=== PATIENT | female | born 1960 | race Caucasian/White ===

== ENCOUNTER 2020-04-30 02:08 | Inpatient (IN) | payer OTHER ==
[2020-04-30] MEDS ORDERED: NALOXONE 0.4 MG/ML 1 ML VIAL IV PRN (02:25)
--- NOTE | 2020-04-30 02:37 | ED ---
Abdominal Pain HPI - General Chief Complaint: Abdominal Pain Stated Complaint: abd pain Time Seen by Provider: 04/30/20 02:11 Source: patient, RN/MD, EMS Mode of arrival: EMS - History of Present Illness Initial Comments: This patient is 59-year-old woman transferred here from [facility] for small bowel obstruction which was found there tonight on computed tomography scan. Patient relates that she had been having abdominal pain across the lower abdomen since the early afternoon or even late morning. She then started having some vomiting. She reported couple of episodes of vomiting without seeing any blood or coffee-ground emesis. She tried taking some home pain medication that did not help and then went to the other hospital tonight. Patient had a comput ed tomography scan there that reportedly showed small bowel obstruction with transition point in the right lower quadrant. Patient had NG tube placement and transferred here. The patient does state she is feeling much better following the medication there. MD Complaint: abdominal pain Location: LLQ, RLQ Radiation: none Severity: moderate Quality: cramping Consistency: now resolved Improves With: nothing Worsens With: nothing Associated Symptoms: nausea, vomiting Treatments Prior to Arrival: other - Related Data Allergies Allergy/AdvReac Type Severity Reaction Status Date / Time gluten AdvReac Nausea & Verified 04/30/20 02:18 Vomiting Review of Systems ROS Statement: Those systems with pertinent positive or pertinent negative responses have been documented in the HPI. ROS Other: All systems not noted in ROS Statement are negative. Constitutional: Denies: fever, chills Respiratory: Denies: cough, dyspnea Cardiovascular: Denies: chest pain, palpitations, edema Gastrointestinal: Reports: abdominal pain, nausea, vomiting. Denies: diarrhea, constipation, hematemesis, melena, hematochezia Genitourinary: Denies: dysuria, hematuria Musculoskeletal: Denies: back pain Skin: Denies: rash Neurological: Denies: headache Past Medical History Additional Past Medical History / Comment(s): only had right kidney, Graves disease, Celiac disease History of Any Multi-Drug Resistant Organisms: None Reported Past Surgical History: Tubal Ligation Additional Past Surgical History / Comment(s): cervical fusion c2-c7,donated kidney Past Psychological History: No Psychological Hx Reported Smoking Status: Former smoker Past Alcohol Use History: Rare Past Drug Use History: None Reported General Exam General appearance: alert, in no apparent distress Head exam: Present: atraumatic, normocephalic Eye exam: Present: normal appearance. Absent: scleral icterus, conjunctival injection ENT exam: Present: normal oropharynx, other (NG tube present) Neck exam: Present: normal inspection Respiratory exam: Present: normal lung sounds bilaterally. Absent: respiratory distress, wheezes, rales, rhonchi, stridor Cardiovascular Exam: Present: regular rate, normal rhythm, normal heart sounds. Absent: systolic murmur, diastolic murmur, rubs, gallop GI/Abdominal exam: Present: soft. Absent: distended, tenderness, guarding, rebound, rigid, mass, pulsatile mass, hernia Extremities exam: Present: normal inspection, normal capillary refill. Absent: pedal edema, calf tenderness Back exam: Present: normal inspection. Absent: CVA tenderness (R), CVA t enderness (L) Neurological exam: Present: alert Skin exam: Present: warm, dry, intact, normal color. Absent: rash Course Vital Signs 04/30/20 02:13 Temperature 97.6 F Pulse Rate 63 Respiratory 18 Rate Blood Pressure 125/63 O2 Sat by Pulse 97 Oximetry Disposition Clinical Impression: Small bowel obstruction Disposition: ADMITTED IP TO THIS HOSP Condition: Fair Is patient prescribed a controlled substance at d/c from ED?: No Referrals: Lazaro Brown MD [Primary Care Provider] - 1-2 days
[2020-04-30] MEDS: SODIUM CHLORIDE 0.9% 1,000 ML IV SCH ×3 (02:40→20:44)
[2020-04-30] MEDS: FAMOTIDINE 20 MG/2 ML VIAL IV SCH ×2 (02:40→15:48)
[2020-04-30] MEDS ORDERED: LIDOCAINE VISCOUS 2% 15 ML CUP MUCOUS MEM STA (02:56)
[2020-04-30] MEDS: ONDANSETRON 4 MG/2 ML VIAL IVP PRN (05:04)
[2020-04-30] MEDS: MORPHINE SULFATE 4 MG/ML SYRINGE IV PRN ×3 (06:22→20:38)
[2020-04-30] MEDS: METOCLOPRAMIDE 5 MG/ML 2 ML VIAL IVP PRN ×2 (08:45→20:38)
[2020-04-30 08:51] LABS: Basophils % (A) 0 %; Eosinophils # (A) 0.1 k/uL (0-0.7); Eosinophils % (A) 1 %; HCT 39.2 % (34.0-46.0); HGB 13.1 gm/dL (11.4-16.0); Lymphocytes # (A) 0.6 k/uL (1.0-4.8); Lymphocytes % (A) 6 %; MCH 31.8 pg (25.0-35.0); MCHC 33.6 g/dL (31.0-37.0); MCV 94.7 fL (80.0-100.0); Monocytes # (A) 0.5 k/uL (0-1.0); Monocytes % (A) 5 %; Neutrophils # (A) 8.5 k/uL (1.3-7.7); Neutrophils % (A) 87 %; Platelet Count 269 k/uL (150-450); RBC 4.13 m/uL (3.80-5.40); RDW 12.8 % (11.5-15.5); WBC 9.7 k/uL (3.8-10.6)
[2020-04-30 09:01] LABS: ALT 13 U/L (4-34); AST 18 U/L (14-36); African American GFR (CKD) 72 (>60 ml/min/1.73 sqM); Albumin 3.7 g/dL (3.5-5.0); Albumin/Globulin Ratio 1.4; Alkaline Phosphatase 83 U/L (38-126); Anion Gap 2 mmol/L; Blood Urea Nitrogen 14 mg/dL (7-17); Carbon Dioxide 29 mmol/L (22-30); Chloride 107 mmol/L (98-107); Globulin 2.6 g/dL; Glucose 125 mg/dL (74-99); Non-African American GFR(CKD) 62 (>60 ml/min/1.73 sqM); Potassium 4.4 mmol/L (3.5-5.1); Sodium 138 mmol/L (137-145); Total Bilirubin 0.4 mg/dL (0.2-1.3); Total Protein 6.3 g/dL (6.3-8.2)
--- NOTE | 2020-04-30 12:51 | P.GSCN ---
History of Present Illness Consult date: 04/30/20 History of present illness: CHIEF COMPLAINT: Abdominal pain HISTORY OF PRESENT ILLNESS: This is a 59-year-old female with a known history of having only one kidney, Graves' disease and celiac disease. History of tubal ligation. Patient's initially presented to [facility] with complaints of abdominal pain. Patient reports that her pain started yesterday afternoon. She reports that her pain had initially been higher up in the abdomen and she was having vomiting. She reports having 3 bowel movements yesterday. 1 she reported normal and then the other tube became looser. She had a computed tomography scan performed at [facility] that did show evidence of a small bowel obstruction with transition point in the right lower quadrant. Patient does report most of her pain is on the right side of her abdomen. She had NG tube placed at [place]. She's had 100 mL output through the evening brownish in color. Patient reports slight improvement in her abdominal pain. She has been having some nausea. She denies any flatus. Denies any fever chills or sweats. She reports no prior history of bowel obstruction. PAST MEDICAL HISTORY: See list. PAST SURGICAL HISTORY: See list. MEDICATIONS: See list. ALLERGIES: See list. SOCIAL HISTORY: No illicit drug use. REVIEW OF SYSTEMS: CONSTITUTIONAL: Denies fever or chills. HEENT: Denies blurred vision, vision changes, or eye pain. Denies hemoptysis CARDIOVASCULAR: Denies chest pain or pressure. RESPIRATORY: No shortness of breath. GASTROINTESTINAL: See HPI for pertinent findings HEMATOLOGIC: Denies bleeding disorders. GENITOURINARY: Denies any blood in urine or increased urinary frequency. SKIN: Denies pruitis. Denies rash. PHYSICAL EXAM: VITAL SIGNS: Reviewed GENERAL: Well-developed in no acute distress. HEENT: No sclera icterus. Extraocular movements grossly intact. Moist buccal mucosa. Head is atraumatic, normocephalic. No nasal drainage. ABDOMEN: Soft. Nondistended. Tenderness with palpation of the right lower abdomen. NEUROLOGIC: Alert and oriented. Cranial nerves II through XII grossly intact. LABORATORY DATA: WBC at [place] was 11 WBC 9.7 Hgb 13.1 IMAGING: ASSESSMENT: 1. Small bowel obstruction with transition point in the right lower quadrant 2. History of nephrectomy for donation and now only has one kidney PLAN: -Continue conservative management -Continue NG tube for decompression -Keep patient nothing by mouth -Continue IV fluids -Continue pain medication as needed -GI prophylaxis Pepcid -DVT prophylaxis subcu heparin Thank you for this consultation Physician Medical Planner note has been reviewed by physician. Signing provider agrees with the documented findings, assessment, and plan of care. Past Medical History Additional Past Medical History / Comment(s): only had right kidney, Graves disease, Celiac disease, IBS History of Any Multi-Drug Resistant Organisms: None Reported Past Surgical History: Tubal Ligation Additional Past Surgical History / Comment(s): cervical fusion c2-c7, donated kidney. R foot reconstruction Past Anesthesia/Blood Transfusion Reactions: No Reported Reaction Past Psychological History: No Psychological Hx Reported Smoking Status: Former smoker Past Alcohol Use History: Rare Past Drug Use History: None Reported Medications and Allergies Home Medications Medication Instructions Recorded Confirmed Type Amitriptyline HCl [Elavil] 25 mg PO HS PRN 04/30/20 04/30/20 History Cetirizine HCl [Zyrtec] 10 mg PO DAILY 04/30/20 04/30/20 History Cider Vinegar [Apple Cider Vinegar] 600 mg PO DAILY 04/30/20 04/30/20 History Fluticasone Nasal [place] [Flonase 1 spray EA NOSTRIL DAILY 04/30/20 04/30/20 History Nasal [place]] Lactobacillus Rhamnosus GG 1 cap PO DAILY 04/30/20 04/30/20 History [Culturelle] Levothyroxine Sodium [Synthroid] 112 mcg PO HS 04/30/20 04/30/20 History Magnesium Oxide [Vitale] 500 mg PO DAILY 04/30/20 04/30/20 History Propranolol [Inderal] 20 mg PO HS 04/30/20 04/30/20 History Riboflavin (Vitamin B2) [Vitamin 200 mg PO DAILY 04/30/20 04/30/20 History B-2] Ubidecarenone [Co Q-10] 200 mg PO DAILY 04/30/20 04/30/20 History busPIRone HCL 15 mg PO BID 04/30/20 04/30/20 History Allergies Allergy/AdvReac Type Severity Reaction Status Date / Time gluten AdvReac Nausea & Verified 04/30/20 07:25 Vomiting Surgical - Exam Vital Signs Temp Pulse Resp BP Pulse Ox 97.6 F 63 18 125/63 97 04/30/20 02:13 04/30/20 02:13 04/30/20 02:13 04/30/20 02:13 04/30/20 02:13 Results - Labs 04/30/20 08:37 04/30/20 08:37 Abnormal Lab Results - Last 24 Hours (Table) 04/30/20 04/30/20 Range/Units 08:37 08:37 Neutrophils # 8.5 H (1.3-7.7) k/uL Lymphocytes # 0.6 L (1.0-4.8) k/uL Glucose 125 H (74-99) mg/dL Diabetes panel 04/30/20 Range/Units 08:37 Sodium 138 (137-145) mmol/L Potassium 4.4 (3.5-5.1) mmol/L Chloride 107 (98-107) mmol/L Carbon Dioxide 29 (22-30) mmol/L BUN 14 (7-17) mg/dL Creatinine 0.98 (0.52-1.04) mg/dL Glucose 125 H (74-99) mg/dL Calcium 9.0 (8.4-10.2) mg/dL AST 18 (14-36) U/L ALT 13 (4-34) U/L Alkaline Phosphatase 83 (38-126) U/L Total Protein 6.3 (6.3-8.2) g/dL Albumin 3.7 (3.5-5.0) g/dL Calcium panel 04/30/20 Range/Units 08:37 Calcium 9.0 (8.4-10.2) mg/dL Albumin 3.7 (3.5-5.0) g/dL Pituitary panel 04/30/20 Range/Units 08:37 Sodium 138 (137-145) mmol/L Potassium 4.4 (3.5-5.1) mmol/L Chloride 107 (98-107) mmol/L Carbon Dioxide 29 (22-30) mmol/L BUN 14 (7-17) mg/dL Creatinine 0.98 (0.52-1.04) mg/dL Glucose 125 H (74-99) mg/dL Calcium 9.0 (8.4-10.2) mg/dL Adrenal panel 04/30/20 Range/Units 08:37 Sodium 138 (137-145) mmol/L Potassium 4.4 (3.5-5.1) mmol/L Chloride 107 (98-107) mmol/L Carbon Dioxide 29 (22-30) mmol/L BUN 14 (7-17) mg/dL Creatinine 0.98 (0.52-1.04) mg/dL Glucose 125 H (74-99) mg/dL Calcium 9.0 (8.4-10.2) mg/dL Total Bilirubin 0.4 (0.2-1.3) mg/dL AST 18 (14-36) U/L ALT 13 (4-34) U/L Alkaline Phosphatase 83 (38-126) U/L Total Protein 6.3 (6.3-8.2) g/dL Albumin 3.7 (3.5-5.0) g/dL
[2020-04-30] MEDS: HEPARIN SODIUM,PORCINE 5,000 UNIT/ML 1 ML VIAL SQ SCH (20:47)
--- NOTE | 2020-04-30 22:47 | P.HPIM ---
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 She complains of early satiety and nausea, denies vomiting and has been having bowel movements. Her pain has been mostly in the R side and worse with eating. She denies fever or chills. She had a CT scan done which did show evidence of a bowel obstruction with transition point in the RLQ. She had an NG tube placed with approx 100 ml out, she feels her pain is slightly improved from yesterday. Labs are reviewed and overall unremarkable with WBC 9.5k. Review of Systems All systems: negative Constitutional: Reports anorexia, Reports weakness, Denies chills, Denies fever Eyes: denies blurred vision, denies pain Ears, nose, mouth and throat: Denies headache, Denies sore throat Cardiovascular: Denies chest pain, Denies shortness of breath Respiratory: Denies cough Gastrointestinal: Reports abdominal pain, Reports bloating, Reports early satiety, Reports loss of appetite, Reports nausea, Denies diarrhea, Denies vomiting Genitourinary: Denies dysuria, Denies hematuria Musculoskeletal: Denies myalgias Integumentary: Denies pruritus, Denies rash Neurological: Denies numbness, Denies weakness Psychiatric: Denies anxiety, Denies depression Endocrine: Denies fatigue, Denies weight change Past Medical History Additional Past Medical History / Comment(s): only had right kidney, Graves disease, Celiac disease, IBS History of Any Multi-Drug Resistant Organisms: None Reported Past Surgical History: Tubal Ligation Additional Past Surgical History / Comment(s): cervical fusion c2-c7, donated kidney. R foot reconstruction Past Anesthesia/Blood Transfusion Reactions: No Reported Reaction Past Psychological History: No Psychological Hx Reported Smoking Status: Former smoker Past Alcohol Use History: Rare Past Drug Use History: None Reported Medications and Allergies Home Medications Medication Instructions Recorded Confirmed Type Amitriptyline HCl [Elavil] 25 mg PO HS PRN 04/30/20 04/30/20 History Cetirizine HCl [Zyrtec] 10 mg PO DAILY 04/30/20 04/30/20 History Cider Vinegar [Apple Cider Vinegar] 600 mg PO DAILY 04/30/20 04/30/20 History Fluticasone Nasal [place] [Flonase 1 spray EA NOSTRIL DAILY 04/30/20 04/30/20 History Nasal [place]] Lactobacillus Rhamnosus GG 1 cap PO DAILY 04/30/20 04/30/20 History [Culturelle] Levothyroxine Sodium [Synthroid] 112 mcg PO HS 04/30/20 04/30/20 History Magnesium Oxide [Vitale] 500 mg PO DAILY 04/30/20 04/30/20 History Propranolol [Inderal] 20 mg PO HS 04/30/20 04/30/20 History Riboflavin (Vitamin B2) [Vitamin 200 mg PO DAILY 04/30/20 04/30/20 History B-2] Ubidecarenone [Co Q-10] 200 mg PO DAILY 04/30/20 04/30/20 History busPIRone HCL 15 mg PO BID 04/30/20 04/30/20 History Allergies Allergy/AdvReac Type Severity Reaction Status Date / Time gluten AdvReac Nausea & Verified 04/30/20 07:25 Vomiting Physical Exam Vitals: Vital Signs Temp Pulse Pulse Resp BP BP BP 04/30/20 19:02 97.4 F L 77 16 134/76 04/30/20 14:00 97.5 F L 73 16 124/76 04/30/20 07:25 97.6 F 65 16 107/67 04/30/20 02:57 98.2 F 60 16 123/71 04/30/20 02:13 97.6 F 63 18 125/63 Pulse Ox 04/30/20 19:02 96 04/30/20 14:00 93 L 04/30/20 07:25 95 04/30/20 02:57 97 04/30/20 02:13 97 Intake and Output 04/30/20 04/30/20 04/30/20 06:59 14:59 22:59 Other: Voiding Method Toilet Toilet # Voids 1 1 # Emeses 1 Weight 90.718 kg General: well nourished, well developed, NAD. Vitals reviewed Eyes: PERRL, EOMI, conjunctiva normal HENT: normocephalic, mucus membranes moist Neck: supple, no JVD Lungs: normal respiratory effort, no wheezes or rales CV: Regular rate and rhythm, no murmur. Peripheral pulses 2+ Abdomen: soft, generalized abdominal pain worse on R Lymph: no cervical or axillary LAD Skin: warm and dry. Neuro: A&Ox3, normal mood and affect Results CBC & Chem 7: 04/30/20 08:37 04/30/20 08:37 Labs: Abnormal Lab Results - Last 24 Hours (Table) 04/30/20 04/30/20 Range/Units 08:37 08:37 Neutrophils # 8.5 H (1.3-7.7) k/uL Lymphocytes # 0.6 L (1.0-4.8) k/uL Glucose 125 H (74-99) mg/dL Thrombosis Risk Factor Assmnt - Choose All That Apply Any of the Below Risk Factors Present?: Yes Each Factor Represents 1 point: Obesity (BMI >25) Other Risk Factors: Yes Each Risk Factor Represents 2 Points: Age 61-74 years Thrombosis Risk Factor Assessment Total Risk Factor Score: 3 Thrombosis Risk Factor Assessment Level: Moderate Risk Assessment and Plan (1) History of tubal ligation Current Visit: Yes Status: Acute Code(s): Z98.51 - TUBAL LIGATION STATUS SNOMED Code(s): 323460808 (2) Solitary kidney, acquired Current Visit: Yes Status: Acute Code(s): Z90.5 - ACQUIRED ABSENCE OF KIDNEY SNOMED Code(s): 414253373 (3) Migraine Current Visit: Yes Status: Acute Code(s): G43.909 - MIGRAINE, UNSP, NOT INTRACTABLE, WITHOUT STATUS MIGRAINOSUS SNOMED Code(s): 73427346 (4) Small bowel obstruction Current Visit: Yes Status: Acute Code(s): K56.609 - UNSP INTESTNL OBST, UNSP TO PARTIAL VERSUS COMPLETE OBST SNOMED Code(s): 138075021 Plan: 1. SBO. NPO and NG tube to suction. Surgery consult. IV fluids at 120 ml/hr. Zofran and reglan prn for nausea and morphine for pain DVT prophylaxis heparin
[2020-05-01] MEDS: MORPHINE SULFATE 4 MG/ML SYRINGE IV PRN ×2 (00:36→08:06)
[2020-05-01] MEDS: SODIUM CHLORIDE 0.9% 1,000 ML IV SCH ×3 (00:53→20:57)
[2020-05-01] MEDS: FAMOTIDINE 20 MG/2 ML VIAL IV SCH ×2 (01:39→14:34)
[2020-05-01] MEDS: METOCLOPRAMIDE 5 MG/ML 2 ML VIAL IVP PRN ×2 (07:55→16:58)
[2020-05-01] MEDS: HEPARIN SODIUM,PORCINE 5,000 UNIT/ML 1 ML VIAL SQ SCH ×2 (07:56→20:57)
[2020-05-01 09:03] LABS: African American GFR (CKD) 77 (>60 ml/min/1.73 sqM); Anion Gap 3 mmol/L; Blood Urea Nitrogen 13 mg/dL (7-17); Calcium 8.2 mg/dL (8.4-10.2); Carbon Dioxide 26 mmol/L (22-30); Chloride 108 mmol/L (98-107); Glucose 120 mg/dL (74-99); Non-African American GFR(CKD) 67 (>60 ml/min/1.73 sqM); Sodium 137 mmol/L (137-145)
[2020-05-01 09:19] LABS: Basophils % (A) 1 %; Eosinophils % (A) 1 %; HCT 38.7 % (34.0-46.0); HGB 13.1 gm/dL (11.4-16.0); Lymphocytes # (A) 0.6 k/uL (1.0-4.8); Lymphocytes % (A) 12 %; MCH 32.1 pg (25.0-35.0); MCHC 33.9 g/dL (31.0-37.0); MCV 94.9 fL (80.0-100.0); Mean Platelet Volume 7.4; Monocytes # (A) 0.5 k/uL (0-1.0); Monocytes % (A) 11 %; Neutrophils # (A) 3.6 k/uL (1.3-7.7); Neutrophils % (A) 75 %; Platelet Count 261 k/uL (150-450); RBC 4.08 m/uL (3.80-5.40); RDW 12.8 % (11.5-15.5); WBC 4.8 k/uL (3.8-10.6)
--- NOTE | 2020-05-01 10:39 | P.PN ---
Subjective Progress Note Date: 05/01/20 CHIEF COMPLAINT: Small bowel obstruction HISTORY OF PRESENT ILLNESS: Patient is being followed for small bowel obstruction. She is complaining of abdominal pain mostly in the middle of her abdomen. She rates her pain 8 out of 10. She is requiring the IV morphine. When she receives the morphine pain goes down to about a 2 out of 10. She's been having dry heaves this morning. Denies any bowel movements or passing gas. She had 350 mL brownish output through her NG tube last night. WBC 4.8 PHYSICAL EXAM: VITAL SIGNS: Reviewed. GENERAL: Well-developed in no acute distress. HEENT: No sclera icterus. Extraocular movements grossly intact. Moist buccal mucosa. Head is atraumatic, normocephalic. ABDOMEN: Soft. Nondistended. Tenderness with palpation of the mid abdomen NEUROLOGIC: Alert and oriented. Cranial nerves II through XII grossly intact. ASSESSMENT: 1. Small bowel obstruction with transition point in the right lower quadrant 2. History of nephrectomy for donation and now only has one kidney PLAN: -We'll check a computed tomography scan of the abdomen and pelvis with oral contrast only for follow-up on small bowel obstruction and abdominal pain -Continue NG tube for decompression -Keep patient nothing by mouth -Continue IV fluids -Continue pain medication as needed -Continue antinausea medications -GI prophylaxis Pepcid -DVT prophylaxis subcu heparin Physician Steel Fabricating Supervisor note has been reviewed by physician. Signing provider agrees with the documented findings, assessment, and plan of care. Objective - Vital Signs Vital signs: Vital Signs Temp 98.1 F 05/01/20 08:00 Pulse 85 05/01/20 08:00 Resp 16 05/01/20 08:00 BP 118/73 05/01/20 08:00 Pulse Ox 92 L 05/01/20 08:00 Intake & Output 04/30/20 05/01/20 05/01/20 18:59 06:59 18:59 Other: Voiding Method Toilet # Voids 1 1 # Emeses 1 - Labs CBC & Chem 7: 05/01/20 08:24 05/01/20 08:24 Labs: Abnormal Lab Results - Last 24 Hours (Table) 05/01/20 05/01/20 Range/Units 08:24 08:24 Lymphocytes # 0.6 L (1.0-4.8) k/uL Chloride 108 H (98-107) mmol/L Glucose 120 H (74-99) mg/dL Calcium 8.2 L (8.4-10.2) mg/dL
[2020-05-01] MEDS: IOPAMIDOL CONTRAST (ORAL USE) VIAL PO PRN ×2 (10:44→12:00)
[2020-05-01] MEDS: ONDANSETRON 4 MG/2 ML VIAL IVP PRN (11:15)
--- NOTE | 2020-05-01 13:13 | CT ---
EXAMINATION TYPE: CT abdomen pelvis wo con DATE OF EXAM: 05/01/2020 HISTORY: Generalized pain with vomiting and diarrhea CT DLP: 745.9 mGycm. Automated Exposure Control for Dose Reduction was Utilized. TECHNIQUE: CT scan of the abdomen and pelvis is performed with oral but without IV contrast. COMPARISON: Outside CT from [address] report not available. FINDINGS: Within the limitations of a non-contrast study, the following observations are made. LUNG BASES: Tiny bilateral pleural effusions with dependent atelectasis and additional [id number] te scattered atelectasis and/or limited consolidation new from recent outside study. LIVER/GB: Gallbladder has distended margins with dependent density favoring sludge and/or small stone s. No surrounding inflammatory change. PANCREAS: No significant abnormality is seen. SPLEEN: No significant abnormality is seen. ADRENALS: No significant abnormality is seen. KIDNEYS: Left kidney not seen and is congenitally or surgically absent. BOWEL: Oral contrast reaches level of the proximal transverse colon. Stomach is poorly distended and thus suboptimally evaluated. Few small bowel loops in the left midabdomen are prominent, some slightly abnormally dilated, largest single lymph node measures up to 4.1 cm centimeter axial image 38 in the upper to mid left abdomen. Interval improvement from outside CT Few scattered contrast there are levels. Terminal ileum appears within normal limits. No suspicious colonic dilatation. Interval resolution of prior small bowel fece s sign in the right abdomen. GENITAL ORGANS: Anteverted uterus. Small to moderate amount of free fluid in the left pelvis axial im age 75 LYMPH NODES: No greater than 1cm abdominal or pelvic lymph nodes are appreciated. OSSEOUS STRUCTURES: No significant abnormality is seen. OTHER: Mild to moderate calcified plaque of the aorta extends into branch vessels. Some ectasia to th e distal abdominal aorta without greater than 3.0 cm aneurysm. IMPRESSION: Improving prominent and abnormally dilated fluid-filled small bowel loops in the left abd omen consistent with resolving partial mid to distal small bowel obstruction. Oral contrast on this s tudy has passed into colonic levels. Correlate clinically.
--- NOTE | 2020-05-01 16:03 | P.PN ---
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 She complains of early satiety and nausea, denies vomiting and has been having bowel movements. Her pain has been mostly in the R side and worse with eating. She denies fever or chills. She had a CT scan done which did show evidence of a bowel obstruction with transition point in the RLQ. She had an NG tube placed with approx 100 ml out, she feels her pain is slightly improved from yesterday. Labs are reviewed and overall unremarkable with WBC 9.5k. 05/01/2020 currently on Reglan, Zofran with NG tube. Reports dry heaves, nauseated. No flatus, no bowel movement. Maintained on IV fluids. Reports diffuse abdominal pain unchanged,remains worse on right lower quadrant. Denies chest pain, palpitations or shortness of breath. T-max 99.4, normal WBC. Objective - Vital Signs Vital signs: Vital Signs Temp 99.4 F 05/01/20 14:00 Pulse 119 H 05/01/20 14:00 Resp 16 05/01/20 14:00 BP 118/73 05/01/20 08:00 Pulse Ox 91 L 05/01/20 14:00 Intake & Output 04/30/20 05/01/20 05/01/20 18:59 06:59 18:59 Other: Voiding Method Toilet # Voids 1 1 # Emeses 1 - Exam General: Sitting up in bed, NAD. Vitals reviewed Eyes: PERRL, EOMI, conjunctiva normal HENT: normocephalic, mucus membranes dry, NG tube present, brownish drainage Neck: supple, no JVD Lungs: normal respiratory effort, no wheezes or rales CV: Regular rate and rhythm, no murmur. Peripheral pulses 2+ Abdomen: soft, generalized abdominal pain worse on R Skin: warm and dry. Neuro: A&Ox3, normal mood and affect - Labs CBC & Chem 7: 05/01/20 08:24 05/01/20 08:24 Labs: Abnormal Lab Results - Last 24 Hours (Table) 05/01/20 05/01/20 Range/Units 08:24 08:24 Lymphocytes # 0.6 L (1.0-4.8) k/uL Chloride 108 H (98-107) mmol/L Glucose 120 H (74-99) mg/dL Calcium 8.2 L (8.4-10.2) mg/dL Assessment and Plan Assessment: SBO Current Visit: Yes Status: Acute Code(s): K56.609 - UNSP INTESTNL OBST, UNSP TO PARTIAL VERSUS COMPLETE OBST SNOMED Code(s): 820524185 Solitary kidney, acquired Current Visit: Yes Status: Acute Code(s): Z90.5 - ACQUIRED ABSENCE OF KIDNEY SNOMED Code(s): 458774927 History of IBS Former nicotine dependence Anxiety Plan: Continue on current medication regime ,monitoring and symptomatic treatment. Continue anti-emetics. Maintain IV fluid hydration with bowel rest, decompression /NG tube. Pain management. CT of abdomen and pelvis pending. Aggressive pulmonary toileting with incentive spirometer ordered. GI prophylaxis with Pepcid, DVT prophylaxis with heparin subcu. The impression and plan of care has been dictated as directed. : I performed a history and examination of this patient, discussed the same with the dictator. I agree with the dictator's note ,documented as a scribe. Any additional findings or plans will be noted.
[2020-05-01] MEDS ORDERED: ACETAMINOPHEN IV (For NPO) 1,000 MG in EMPTY BAG 1 BAG IVPB PRN (20:01)
[2020-05-01] MEDS: PIPERACILLIN-TAZOBACTAM 3.375 GM in SODIUM CHLORIDE 0.9% 100 ML IVPB SCH (20:57)
[2020-05-02] MEDS: FAMOTIDINE 20 MG/2 ML VIAL IV SCH ×2 (03:34→14:01)
[2020-05-02] MEDS: SODIUM CHLORIDE 0.9% 1,000 ML IV SCH ×3 (03:38→22:43)
[2020-05-02] MEDS: PIPERACILLIN-TAZOBACTAM 3.375 GM in SODIUM CHLORIDE 0.9% 100 ML IVPB SCH (08:33)
[2020-05-02] MEDS: HEPARIN SODIUM,PORCINE 5,000 UNIT/ML 1 ML VIAL SQ SCH ×2 (08:33→20:40)
[2020-05-02] MEDS: ONDANSETRON 4 MG/2 ML VIAL IVP PRN ×2 (08:33→20:39)
[2020-05-02 08:48] LABS: ALT 9 U/L (4-34); AST 17 U/L (14-36); African American GFR (CKD) 73 (>60 ml/min/1.73 sqM); Albumin 2.9 g/dL (3.5-5.0); Albumin/Globulin Ratio 1.2; Alkaline Phosphatase 65 U/L (38-126); Anion Gap 4 mmol/L; Blood Urea Nitrogen 11 mg/dL (7-17); Calcium 7.7 mg/dL (8.4-10.2); Carbon Dioxide 26 mmol/L (22-30); Chloride 107 mmol/L (98-107); Globulin 2.5 g/dL; Glucose 106 mg/dL (74-99); Non-African American GFR(CKD) 64 (>60 ml/min/1.73 sqM); Potassium 3.6 mmol/L (3.5-5.1); Sodium 137 mmol/L (137-145); Total Bilirubin 0.7 mg/dL (0.2-1.3); Total Protein 5.4 g/dL (6.3-8.2)
[2020-05-02 09:06] LABS: HGB 11.8 gm/dL (11.4-16.0); MCH 32.4 pg (25.0-35.0); MCHC 33.8 g/dL (31.0-37.0); MCV 95.8 fL (80.0-100.0); Mean Platelet Volume 8.5; Platelet Count 233 k/uL (150-450); RBC 3.65 m/uL (3.80-5.40); RDW 12.9 % (11.5-15.5); WBC 4.7 k/uL (3.8-10.6)
[2020-05-02 09:40] LABS: Band Neutrophils % 4 %; Eosinophils # (M) 0.09 k/uL (0-0.7); Lymphocytes # (M) 1.03 k/uL (1.0-4.8); Monocytes # (M) 0.47 k/uL (0-1.0); Neutrophils % (M) 62 %; Nucleated Red Blood Cells 0 /100 WBC (0-0); Total Cells Counted 100
--- NOTE | 2020-05-02 12:31 | P.PN ---
Subjective Progress Note Date: 05/02/20 CHIEF COMPLAINT: Small bowel obstruction HISTORY OF PRESENT ILLNESS: Patient is being followed for small bowel obstruction. Patient had 2 bowel movements this morning and is passing gas. Her abdominal pain has decreased. NG tube will be removed today. Computed tomography scan of the abdomen and pelvis shows improving small bowel obstruction. She did have a temp of 100.1 last night and had been tachycardic with a heart rate of 114. I this morning she is afebrile at 98.5 and heart rate 96. Ice she's been placed on IV Zosyn and incentive spirometer ordered by medicine service. PHYSICAL EXAM: VITAL SIGNS: Reviewed. GENERAL: Well-developed in no acute distress. HEENT: No sclera icterus. Extraocular movements grossly intact. Moist buccal mucosa. Head is atraumatic, normocephalic. ABDOMEN: Soft. Nondistended. Minimal tenderness with palpation of middle of abdomen NEUROLOGIC: Alert and oriented. Cranial nerves II through XII grossly intact. ASSESSMENT: 1. Small bowel obstruction with transition point in the right lower quadrant. Showing improvement 2. 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 Signing provider agrees with the documented findings, assessment, and plan of care. Objective - Vital Signs Vital signs: Vital Signs Temp 98.5 F 05/02/20 07:43 Pulse 96 05/02/20 07:43 Resp 18 05/02/20 08:00 BP 121/72 05/02/20 07:43 Pulse Ox 90 L 05/02/20 07:43 Intake & Output 05/01/20 05/02/20 05/02/20 18:59 06:59 18:59 Other: Voiding Method Toilet Bedside Commode # Voids 1 1 1 # Bowel Movements 1 - Labs CBC & Chem 7: 05/02/20 01:53 05/02/20 01:53 Labs: Abnormal Lab Results - Last 24 Hours (Table) 05/02/20 05/02/20 Range/Units 01:53 01:53 RBC 3.65 L (3.80-5.40) m/uL Glucose 106 H (74-99) mg/dL Calcium 7.7 L (8.4-10.2) mg/dL Total Protein 5.4 L (6.3-8.2) g/dL Albumin 2.9 L (3.5-5.0) g/dL
[2020-05-02] MEDS ORDERED: BENZOCAINE/MENTHOL LOZENG 1 EACH LOZENGE MUCOUS MEM PRN (14:30)
--- NOTE | 2020-05-02 15:03 | CDI ---
Documentation Clarification Form Date: 05/02/2020 02:34:43 PM From: Sunshine Ortiz RN, CCDS Admit Date: 04/30/2020 02:25:00 AM Patient Name: Erika Busch Visit Number: [id number] Discharge Date: ATTENTION: The Clinical Documentation Specialists (CDI) and [facility] Coding Staff appreciate your assistance in clarifying documentation. Please respond to the clarification below the line at the bottom and electronically sign. The CDI & [facility] Coding staff will review the response and follow-up if needed. Please note: Queries are made part of the Legal Health Record. If you have any questions, please contact the author of this message via ITS. Dr. Lazaro Brown The patient presented with abdominal pain ruled in for small bowel obstruction. Please render your opinion on the type of small bowel obstruction. History/Risk Factors: Donated kidney, Graves disease, Celiac disease, Former smoker Clinical Indicators: 59-year-old woman transferred from [facility] for small bowel obstruction which was found on CT scan. She had been having abdominal pain across the lower abdomen with nausea and vomiting. 04/30 Vital signs: 125/63 63 18 97.6 05/01 CT Abdomen: Improving prominent and abnormally dilated fluid-filled small bowel loops in the left abdomen consistent with resolving partial mid to distal small bowel obstruction. Treatment: NPO NGT to LIS Morphin 4 mg IV Q 4 hrs prn .9 NS @ 120 mls/hr Zofran 4 mg IVP q 8 hrs prn In your professional opinion, can you please further clarify small bowel obstruction? Partial small bowel obstruction Complete small bowel obstruction Incomplete small bowel obstruction Other, please specify Unable to determine (Last Revision: August 2017) Partial small bowel obstruction MTDD
[2020-05-02] MEDS: METOCLOPRAMIDE 5 MG/ML 2 ML VIAL IVP PRN (17:15)
--- NOTE | 2020-05-02 18:19 | P.PN ---
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 She complains of early satiety and nausea, denies vomiting and has been having bowel movements. Her pain has been mostly in the R side and worse with eating. She denies fever or chills. She had a CT scan done which did show evidence of a bowel obstruction with transition point in the RLQ. She had an NG tube placed with approx 100 ml out, she feels her pain is slightly improved from yesterday. Labs are reviewed and overall unremarkable with WBC 9.5k. 05/01/2020 currently on Reglan, Zofran with NG tube. Reports dry heaves, nauseated. No flatus, no bowel movement. Maintained on IV fluids. Reports diffuse abdominal pain unchanged,remains worse on right lower quadrant. Denies chest pain, palpitations or shortness of breath. T-max 99.4, normal WBC. 1217 20 CT reporting partial small bowel obstruction. Nausea improved, complains of gagging from NG tube. Staff attempting to obtain Cetacaine spray. Spiked a fever during the night, T-max 100.1, WBC within normal limits, mild tachycardia received Zosyn . Blood cultures in progress. Currently afebrile, tachycardia subsided. Passing flatus,bowel movements x 2 this am, less abdominal pain. Objective - Vital Signs Vital signs: Vital Signs Temp 97.5 F L 05/02/20 14:00 Pulse 89 05/02/20 14:00 Resp 18 05/02/20 14:00 BP 123/76 05/02/20 14:00 Pulse Ox 91 L 05/02/20 14:00 Intake & Output 05/01/20 05/02/20 05/02/20 18:59 06:59 18:59 Intake Total 200 Balance 200 Intake: Oral 200 Other: Voiding Method Toilet Bedside Commode # Voids 1 1 1 # Bowel Movements 1 - Exam General: Sitting up in bed, NAD. Vitals reviewed Eyes: PERRL, EOMI, conjunctiva normal HENT: normocephalic, mucus membranes dry, NG tube present, less drainage Neck: supple, no JVD Lungs: normal respiratory effort, no wheezes or rales CV: Regular rate and rhythm, no murmur. Peripheral pulses 2+ Abdomen: soft, generalized abdominal pain worse on R, positive bowel sounds Skin: warm and dry. Neuro: A&Ox3, normal mood and affect - Labs CBC & Chem 7: 05/02/20 01:53 05/02/20 01:53 Labs: Abnormal Lab Results - Last 24 Hours (Table) 05/02/20 05/02/20 Range/Units 01:53 01:53 RBC 3.65 L (3.80-5.40) m/uL Glucose 106 H (74-99) mg/dL Calcium 7.7 L (8.4-10.2) mg/dL Total Protein 5.4 L (6.3-8.2) g/dL Albumin 2.9 L (3.5-5.0) g/dL Assessment and Plan Assessment: SBO Current Visit: Yes Status: Acute Code(s): K56.609 - UNSP INTESTNL OBST, UNSP TO PARTIAL VERSUS COMPLETE OBST SNOMED Code(s): 016486795 Solitary kidney, acquired Current Visit: Yes Status: Acute Code(s): Z90.5 - ACQUIRED ABSENCE OF KIDNEY SNOMED Code(s): 182307048 History of IBS Former nicotine dependence Anxiety Plan: Continue on current medication regime ,monitoring and symptomatic treatment. Continue anti-emetics. Maintain IV fluid hydration. Pain management. NG tube being discontinued/diet advancement as per surgery. Continue aggressive pulmonary toileting with incentive spirometer ordered. Discharge planning in progress possibly tomorrow. The impression and plan of care has been dictated as directed. : I performed a history and examination of this patient, discussed the same with the dictator. I agree with the dictator's note ,documented as a scribe. Any additional findings or plans will be noted.
[2020-05-02] MEDS: MORPHINE SULFATE 4 MG/ML SYRINGE IV PRN (19:39)
[2020-05-03] MEDS: SODIUM CHLORIDE 0.9% 1,000 ML IV SCH (00:37)
[2020-05-03 02:46] VITALS: BP 136/80; PULSE 78; RESP 14; TEMP 98.3
[2020-05-03] MEDS: FAMOTIDINE 20 MG/2 ML VIAL IV SCH (02:51)
[2020-05-03] MEDS: HEPARIN SODIUM,PORCINE 5,000 UNIT/ML 1 ML VIAL SQ SCH (08:30)
--- NOTE | 2020-05-03 10:28 | P.DS ---
Providers Date of admission: 04/30/20 02:25 Expected date of discharge: 05/03/20 Attending physician: Lazaro Brown MD Consults: 04/30/20 02:28 Consult Physician Routine Consulting Provider: Kvng Alford Consult Reason/Comments: small bowel obstruction Do you want consulting provider notified?: Yes Primary care physician: Lazaro Brown MD Hospital Course: Final Diagnoses: SBO Current Visit: Yes Status: Acute Code(s): K56.609 - UNSP INTESTNL OBST, UNSP TO PARTIAL VERSUS COMPLETE OBST SNOMED Code(s): 287887476 Solitary kidney, acquired Current Visit: Yes Status: Acute Code(s): Z90.5 - ACQUIRED ABSENCE OF KIDNEY SNOMED Code(s): 853769831 History of IBS Former nicotine dependence Anxiety Hospital course:Erika Busch is a 59 yo F with PMH of migraine, 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 She complains of early satiety and nausea, denies vomiting and has been having bowel movements. Her pain has been mostly in the R side and worse with eating. She denies fever or chills. She had a CT scan done which did show evidence of a bowel obstruction with transition point in the RLQ. She had an NG tube placed with approx 100 ml out, she feels her pain is slightly improved from yesterday. Labs are reviewed and overall unremarkable with WBC 9.5k. 05/01/2020 currently on Reglan, Zofran with NG tube. Reports dry heaves, nauseated. No flatus, no bowel movement. Maintained on IV fluids. Reports diffuse abdominal pain unchanged,remains worse on right lower quadrant. Denies chest pain, palpitations or shortness of breath. T-max 99.4, normal WBC. 1217 [address] CT reporting partial small bowel obstruction. Nausea improved, complains of gagging from NG tube. Staff attempting to obtain Cetacaine spray. Spiked a fever during the night, T-max 100.1, WBC within normal limits, mild tachycardia received Zosyn . Blood cultures in progress. Currently afebrile, tachycardia subsided. Passing flatus,bowel movements x 2 this am, less abdominal pain. NG tube discontinued, tolerating diet advancement. Passing flatus. Abdominal pain significantly improved, reports some cramping. Patient will be discharged home later today in a stable condition with guarded prognosis, if patient tolerates further diet advancement to soft and pending final DC recommendations and clearance from surgery. The impression and plan of care has been dictated as directed. : I performed a history and examination of this patient, discussed the same with the dictator. I agree with the dictator's note ,documented as a scribe. Any additional findings or plans will be noted. Patient Condition at Discharge: Stable Plan - Discharge Summary New Discharge Prescriptions: New Psyllium Husk (with Sugar) [Metamucil Powder] 6 gm PO DAILY #575 gm Sennosides-Docusate Sodium [Senokot-S] 2 tab PO HS #60 tablet Simethicone [Gas-X] 62.5 mg PO TID #30 strip Continue Fluticasone Nasal Jamison [Flonase Nasal Jamison] 1 spray EA NOSTRIL DAILY Cider Vinegar [Apple Cider Vinegar] 600 mg PO DAILY Riboflavin (Vitamin B2) [Vitamin B-2] 200 mg PO DAILY Magnesium Oxide [Vitale] 500 mg PO DAILY Lactobacillus Rhamnosus GG [Culturelle] 1 cap PO DAILY Cetirizine HCl [Zyrtec] 10 mg PO DAILY busPIRone HCL 15 mg PO HS Propranolol [Inderal] 20 mg PO HS Levothyroxine Sodium [Synthroid] 112 mcg PO HS Amitriptyline HCl [Elavil] 25 mg PO HS PRN PRN Reason: Migraine Headache Ubidecarenone [Co Q-10] 200 mg PO DAILY Discharge Medication List Amitriptyline HCl [Elavil] 25 mg PO HS PRN 04/30/20 [History] Cetirizine HCl [Zyrtec] 10 mg PO DAILY 04/30/20 [History] Cider Vinegar [Apple Cider Vinegar] 600 mg PO DAILY 04/30/20 [History] Fluticasone Nasal Jamison [Flonase Nasal Jamison] 1 spray EA NOSTRIL DAILY 04/30/20 [History] Lactobacillus Rhamnosus GG [Culturelle] 1 cap PO DAILY 04/30/20 [History] Levothyroxine Sodium [Synthroid] 112 mcg PO HS 04/30/20 [History] Magnesium Oxide [Vitale] 500 mg PO DAILY 04/30/20 [History] Propranolol [Inderal] 20 mg PO HS 04/30/20 [History] Riboflavin (Vitamin B2) [Vitamin B-2] 200 mg PO DAILY 04/30/20 [History] Ubidecarenone [Co Q-10] 200 mg PO DAILY 04/30/20 [History] busPIRone HCL 15 mg PO HS 04/30/20 [History] Psyllium Husk (with Sugar) [Metamucil Powder] 6 gm PO DAILY #575 gm 05/03/20 [Rx] Sennosides-Docusate Sodium [Senokot-S] 2 tab PO HS #60 tablet 05/03/20 [Rx] Simethicone [Gas-X] 62.5 mg PO TID #30 strip 05/03/20 [Rx] Follow up Appointment(s)/Referral(s): Lazaro Brown MD [Primary Care Provider] - 1-2 days Activity/Diet/Wound Care/Special Instructions: Diet: High-fiber, increased water intake as previously discussed Miralax prn, OTC
[2020-05-03] MEDS ORDERED: SIMETHICONE 80 MG CHEWABLE PO SCH (13:00)
--- NOTE | 2020-05-03 13:22 | P.PN ---
Subjective Progress Note Date: 05/03/20 CHIEF COMPLAINT: Small bowel obstruction HISTORY OF PRESENT ILLNESS: Patient is being followed for small bowel obstruction. Patient is having bowel movements and passing gas. She's had improvement in her abdominal pain. She is tolerating full liquid diet. She'll be advanced to a low fiber diet. She denies any nausea or vomiting. Afebrile. WBC 4.7 PHYSICAL EXAM: VITAL SIGNS: Reviewed. GENERAL: Well-developed in no acute distress. HEENT: No sclera icterus. Extraocular movements grossly intact. Moist buccal mucosa. Head is atraumatic, normocephalic. ABDOMEN: Soft. Nondistended. Nontender NEUROLOGIC: Alert and oriented. Cranial nerves II through XII grossly intact. ASSESSMENT: 1. Small bowel obstruction with transition point in the right lower quadrant. Showing improvement 2. 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 bolton in 10 days Physician Magnet Placer note has been reviewed by physician. Signing provider agrees with the documented findings, assessment, and plan of care. Objective - Vital Signs Vital signs: Vital Signs Temp 98.3 F 05/03/20 01:40 Pulse 78 05/03/20 01:40 Resp 14 05/03/20 01:40 BP 136/80 05/03/20 01:40 Pulse Ox 90 L 05/03/20 01:40 Intake & Output 05/02/20 05/03/20 05/03/20 18:59 06:59 18:59 Intake Total 640 600 Balance 640 600 Intake: Intake, IV Titration 600 Amount Sodium Chloride 0.9% 1, 600 000 ml @ 120 mls/hr IV . Q8H20M [facility] Rx#:[id number] Oral 440 Other 200 Other: Voiding Method Bedside Commode Toilet # Voids 1 1 # Bowel Movements 1 - Labs CBC & Chem 7: 05/02/20 01:53 05/02/20 01:53 Labs: Microbiology - Last 24 Hours (Table) 05/02/20 01:53 Blood Culture - Preliminary Blood No Growth after 24 hours
== END 2020-05-03 14:06 | disposition home or self-care (01) | DRG 390 ==
LOC: EC 02:08 → SUPCPDRO 02:08 → 5NMEDONC 02:25
PROVIDERS: ADMIT Family Medicine; ATTEND Family Medicine
PROC: 0D9670Z Drainage of Stomach with Drainage Device, Via Natural or Artificial Opening (ICD-10-PCS; principal; 2020-04-30)
DX: K56.600 Partial intestinal obstruction, unspecified as to cause (principal); F41.9 Anxiety disorder, unspecified; G43.909 Migraine, unspecified, not intractable, without status migrainosus; K90.0 Celiac disease; Z79.890 Hormone replacement therapy; Z87.891 Personal history of nicotine dependence; Z90.5 Acquired absence of kidney; Z98.51 Tubal ligation status; Z88.8 Allergy status to other drugs, medicaments and biological substances; Z98.1 Arthrodesis status
CPT/HCPCS: 74176; 80048; 80053; 83605; 85025; 87040; 96374; 99285

== ENCOUNTER 2020-05-03 23:34 | Inpatient (IN) | payer OTHER ==
[2020-05-04] MEDS ORDERED: HYDROmorphone 1 MG/ML 1 ML SYRINGE IVP STA (00:10)
[2020-05-04] MEDS ORDERED: ONDANSETRON 4 MG/2 ML VIAL IVP STA (00:10)
[2020-05-04 00:18] LABS: Basophils % (A) 0 %; Eosinophils # (A) 0.3 k/uL (0-0.7); Eosinophils % (A) 4 %; HGB 11.8 gm/dL (11.4-16.0); Lymphocytes # (A) 0.9 k/uL (1.0-4.8); Lymphocytes % (A) 12 %; MCH 30.7 pg (25.0-35.0); MCHC 32.9 g/dL (31.0-37.0); MCV 93.5 fL (80.0-100.0); Mean Platelet Volume 7.1; Monocytes # (A) 0.4 k/uL (0-1.0); Monocytes % (A) 5 %; Neutrophils # (A) 5.6 k/uL (1.3-7.7); Neutrophils % (A) 77 %; Platelet Count 287 k/uL (150-450); RBC 3.85 m/uL (3.80-5.40); RDW 13.1 % (11.5-15.5); WBC 7.3 k/uL (3.8-10.6)
[2020-05-04 00:27] LABS: Albumin 3.4 g/dL (3.5-5.0); Calcium 8.9 mg/dL (8.4-10.2); Total Bilirubin 0.4 mg/dL (0.2-1.3)
[2020-05-04 01:05] LABS: Potassium 3.6 mmol/L (3.5-5.1)
--- NOTE | 2020-05-04 01:17 | ED ---
Abdominal Pain HPI - General Chief Complaint: Abdominal Pain Stated Complaint: Bowel Obstruction Time Seen by Provider: 05/03/20 23:45 Source: patient Mode of arrival: wheelchair Limitations: no limitations - History of Present Illness Initial Comments: Patient is 59-year-old woman who presents to be evaluated for abdominal pain that started a few hours ago. This came on approximately 2030 minutes after she had eaten some eggs. Patient states that she had been admitted in the hospital for partial small bowel obstruction and had just left the hospital earlier in the day. She indicates pain in the upper abdomen. Patient also having nausea and dry heaves. No coffee ground emesis or hematemesis. She is passing flatus. MD Complaint: abdominal pain -: hour(s) Location: epigastric Radiation: none Migration to: no migration Severity: severe Quality: sharp Consistency: constant Improves With: nothing Worsens With: nothing Associated Symptoms: nausea, vomiting - Related Data Home Medications Medication Instructions Recorded Confirmed Amitriptyline HCl [Elavil] 25 mg PO HS PRN 04/30/20 05/04/20 Cetirizine HCl [Zyrtec] 10 mg PO DAILY 04/30/20 05/04/20 Cider Vinegar [Apple Cider Vinegar] 600 mg PO DAILY 04/30/20 05/04/20 Fluticasone Nasal Baxter [Flonase 1 spray EA NOSTRIL DAILY 04/30/20 05/04/20 Nasal Baxter] Lactobacillus Rhamnosus GG 1 cap PO DAILY 04/30/20 05/04/20 [Culturelle] Levothyroxine Sodium [Synthroid] 112 mcg PO HS 04/30/20 05/04/20 Magnesium Oxide [Vitale] 500 mg PO DAILY 04/30/20 05/04/20 Propranolol [Inderal] 20 mg PO HS 04/30/20 05/04/20 Riboflavin (Vitamin B2) [Vitamin 200 mg PO DAILY 04/30/20 05/04/20 B-2] Ubidecarenone [Co Q-10] 200 mg PO DAILY 04/30/20 05/04/20 busPIRone HCL 15 mg PO BID 04/30/20 05/04/20 Simethicone [Gas-X] 62.5 mg PO TID PRN 05/04/20 05/04/20 Previous Rx's Medication Instructions Recorded Psyllium Husk (with Sugar) 6 gm PO DAILY #575 gm 05/03/20 [Metamucil Powder] Sennosides-Docusate Sodium 2 tab PO HS #60 tablet 05/03/20 [Senokot-S] Allergies Allergy/AdvReac Type Severity Reaction Status Date / Time gluten AdvReac Nausea & Verified 05/04/20 08:21 Vomiting Review of Systems ROS Statement: Those systems with pertinent positive or pertinent negative responses have been documented in the HPI. ROS Other: All systems not noted in ROS Statement are negative. Constitutional: Denies: fever, chills Respiratory: Denies: cough, dyspnea Cardiovascular: Denies: chest pain, palpitations, edema Gastrointestinal: Reports: abdominal pain, nausea, vomiting. Denies: diarrhea, constipation, melena, hematochezia Genitourinary: Denies: dysuria, frequency, hematuria Musculoskeletal: Denies: back pain Skin: Denies: rash Neurological: Denies: headache, weakness, numbness Past Medical History Additional Past Medical History / Comment(s): only had right kidney, Graves disease, Celiac disease, IBS History of Any Multi-Drug Resistant Organisms: None Reported Past Surgical History: Tubal Ligation Additional Past Surgical History / Comment(s): cervical fusion c2-c7, donated kidney. R foot reconstruction Past Anesthesia/Blood Transfusion Reactions: No Reported Reaction Past Psychological History: No Psychological Hx Reported Smoking Status: Former smoker Past Alcohol Use History: Rare Past Drug Use History: None Reported - Past Family History Mother Family Medical History: Diabetes Mellitus General Exam Limitations: no limitations General appearance: alert, in no apparent distress Head exam: Present: atraumatic, normocephalic Eye exam: Present: normal appearance. Absent: scleral icterus, conjunctival injection ENT exam: Present: normal oropharynx Neck exam: Present: normal inspection Respiratory exam: Present: normal lung sounds bilaterally. Absent: respiratory distress, wheezes, rales, rhonchi, stridor Cardiovascular Exam: Present: regular rate, normal rhythm, normal heart sounds. Absent: systolic murmur, diastolic murmur, rubs, gallop GI/Abdominal exam: Present: soft, tenderness. Absent: distended, guarding, rebound, rigid, mass, pulsatile mass Extremities exam: Present: normal inspection, normal capillary refill. Absent: pedal edema, calf tenderness Back exam: Present: normal inspection. Absent: CVA tenderness (R), CVA tenderness (L) Neurological exam: Present: alert Skin exam: Present: warm, dry, intact, normal color. Absent: rash Course Vital Signs 05/03/20 05/04/20 23:35 02:03 Temperature 98.5 F 100.6 F H Pulse Rate 73 70 Respiratory 16 16 Rate Blood Pressure 143/81 146/89 O2 Sat by Pulse 96 92 L Oximetry Medical Decision Making - Lab Data Result diagrams: 05/04/20 00:11 05/05/20 23:52 Lab Results 05/04/20 05/04/20 05/04/20 Range/Units 00:11 00:11 00:11 WBC 7.3 (3.8-10.6) k/uL RBC 3.85 (3.80-5.40) m/uL Hgb 11.8 (11.4-16.0) gm/dL Hct 36.0 (34.0-46.0) % MCV 93.5 (80.0-100.0) fL MCH 30.7 (25.0-35.0) pg MCHC 32.9 (31.0-37.0) g/dL RDW 13.1 (11.5-15.5) % Plt Count 287 (150-450) k/uL MPV 7.1 Neutrophils % 77 % Lymphocytes % 12 % Monocytes % 5 % Eosinophils % 4 % Basophils % 0 % Neutrophils # 5.6 (1.3-7.7) k/uL Lymphocytes # 0.9 L (1.0-4.8) k/uL Monocytes # 0.4 (0-1.0) k/uL Eosinophils # 0.3 (0-0.7) k/uL Basophils # 0.0 (0-0.2) k/uL Sodium 137 (137-145) mmol/L Potassium 3.6 (3.5-5.1) mmol/L Chloride 107 (98-107) mmol/L Carbon Dioxide 25 (22-30) mmol/L Anion Gap 5 mmol/L BUN 8 (7-17) mg/dL Creatinine 0.89 (0.52-1.04) mg/dL Est GFR (CKD-EPI)AfAm 81 (>60 ml/min/1.73 sqM) Est GFR (CKD-EPI)NonAf 70 (>60 ml/min/1.73 sqM) Glucose 102 H (74-99) mg/dL Calcium 8.9 (8.4-10.2) mg/dL Total Bilirubin 0.4 (0.2-1.3) mg/dL AST 18 (14-36) U/L ALT 10 (4-34) U/L Alkaline Phosphatase 71 (38-126) U/L Total Protein 6.0 L (6.3-8.2) g/dL Albumin 3.4 L (3.5-5.0) g/dL Amylase 55 (30-110) U/L Lipase 227 (23-300) U/L Urine Color Yellow Urine Appearance Clear (Clear) Urine pH 6.5 (5.0-8.0) Ur Specific Buhler 1.014 (1.001-1.035) Urine Protein Trace H (Negative) Urine Glucose (UA) Negative (Negative) Urine Ketones 2+ H (Negative) Urine Blood Negative (Negative) Urine Nitrite Negative (Negative) Urine Bilirubin Negative (Negative) Urine Urobilinogen <2.0 (<2.0) mg/dL Ur Leukocyte Esterase Negative (Negative) Disposition Clinical Impression: Small bowel obstruction, Abdominal pain Disposition: ADMITTED IP TO THIS HOSP Condition: Fair Is patient prescribed a controlled substance at d/c from ED?: No
--- NOTE | 2020-05-04 01:29 | US ---
EXAM: US Abdomen Limited, Right Upper Quadrant CLINICAL HISTORY: RUQ pain. TECHNIQUE: Real-time ultrasound of the right upper quadrant with image documentation. COMPARISON: No relevant prior studies available. FINDINGS: Liver: Unremarkable. No mass. No intrahepatic bile duct dilation. Gallbladder: Unremarkable. No gallstones. Common bile duct: Unremarkable as visualized. No stones. No dilation. Pancreas: Unremarkable as visualized. Right kidney: Right kidney unremarkable. No stones. No hydronephrosis. Free fluid: No free fluid. IMPRESSION: No acute findings in the right upper quadrant.
--- NOTE | 2020-05-04 02:26 | CT ---
EXAM: CT Abdomen and Pelvis Without Intravenous Contrast CLINICAL HISTORY: Upper abdominal pain. TECHNIQUE: Axial computed tomography images of the abdomen and pelvis without intravenous contrast. CTDI is 12.47 mGy and DLP is 704.50 mGy-cm. This CT exam was performed using one or more of the following dose reduction techniques: automated exposure control, adjustment of the mA and/or kV according to patient size, and/or use of iterative reconstruction technique. COMPARISON: May 01, 2020. FINDINGS: Lung bases: Worsening infiltration in the left lower lobe. ABDOMEN: Liver: Unremarkable. Gallbladder and bile ducts: Distended gallbladder with gallbladder wall thickening. No calcified stones. No ductal dilation. Pancreas: Unremarkable. No ductal dilation. Spleen: Unremarkable. No splenomegaly. Adrenals: Unremarkable. No mass. Kidneys and ureters: Absent left kidney. No obstructing stones. No hydronephrosis. Stomach and bowel: Several dilated small bowel loops measuring up to 3. 8 cm. Previous recent oral contrast administration is now seen within the colon. No mucosal thickening. PELVIS: Appendix: No findings to suggest acute appendicitis. Bladder: Unremarkable. No stones. Reproductive: Unremarkable as visualized. ABDOMEN and PELVIS: Intraperitoneal space: Unremarkable. No free air. No significant fluid collection. Bones/joints: No acute fracture. No dislocation. Soft tissues: Unremarkable. Vasculature: Unremarkable. No abdominal aortic aneurysm. Lymph nodes: Unremarkable. No enlarged lymph nodes. IMPRESSION: Worsening infiltration in the left lower lobe. Numerous abnormally dilated small bowel loops. This may represent partial small bowel obstruction. Previous recent oral contrast demonstration is seen within the colon. Distended gallbladder with mild gallbladder wall thickening.
[2020-05-04] MEDS ORDERED: NALOXONE 0.4 MG/ML 1 ML VIAL IV PRN (02:32)
[2020-05-04] MEDS ORDERED: ACETAMINOPHEN TAB 325 MG TAB PO PRN (02:32)
[2020-05-04] MEDS ORDERED: MORPHINE SULFATE 4 MG/ML SYRINGE IV PRN (02:32)
[2020-05-04] MEDS: ONDANSETRON 4 MG/2 ML VIAL IVP PRN (02:47)
--- NOTE | 2020-05-04 03:27 | XR ---
EXAM: XR Chest, 1 View CLINICAL HISTORY: Gastric tube placement TECHNIQUE: Frontal view of the chest. COMPARISON: No relevant prior studies available. FINDINGS: Lungs: Bilateral infiltration or atelectasis in both lung bases, worse on the left. Pleural space: Unremarkable. No pneumothorax or pleural fluid. Heart: Unremarkable. No cardiomegaly. Mediastinum: Unremarkable. Bones/joints: No acute findings. Tubes, lines and devices: A gastric tube is seen in the stomach with the tip in the lateral aspect of the proximal stomach. IMPRESSION: Gastric tube in stomach.
[2020-05-04] MEDS: SODIUM CHLORIDE 0.9% 1,000 ML IV SCH ×4 (03:41→21:33)
[2020-05-04] MEDS: FAMOTIDINE 20 MG/2 ML VIAL IV SCH ×2 (03:41→15:41)
[2020-05-04] MEDS: HYDROmorphone 0.5 MG/0.5 ML SYRINGE IVP PRN ×2 (04:00→12:30)
[2020-05-04] MEDS ORDERED: SODIUM CHLORIDE 0.9% 2,000 ML IV ONE (04:01)
[2020-05-04] MEDS ORDERED: BENZOCAINE SPRAY 1 CAN MUCOUS MEM PRN (04:02)
[2020-05-04 04:41] LABS: Appearance,Urine Clear (Clear); Bilirubin,Urine Negative (Negative); Blood,Urine Negative (Negative); Color,Urine Yellow; Glucose,Urine (UA) Negative (Negative); Ketones,Urine 2+ (Negative); Leukocyte Esterase,Urine Negative (Negative); Nitrite,Urine Negative (Negative); PH, Urine 6.5 (5.0-8.0); Protein,Urine Trace (Negative); Specific Gravity,Urine 1.014 (1.001-1.035); Urobilinogen,Urine <2.0 mg/dL (<2.0)
[2020-05-04] MEDS ORDERED: AMITRIPTYLINE HCL 25 MG TAB PO PRN (14:11)
--- NOTE | 2020-05-04 15:15 | P.HPIM ---
History of Present Illness patient is a pleasant 59-year-old female came in with complaints of severe epigastric sharp abdominal pain nonradiating. Patient was recently discharged from the hospital after she was treated for partial small bowel obstruction con servatively. Patient had a repeat CAT scan which showed dilated bowel loops NG tube was put in although there is no sick and drainage from the NG tube. CT also showed possible thickening of the gallbladder although patient doesn't have any right upper quadrant pain, tenderness, ultrasound did not show cholelithiasis or cholecystitis. Patient did have a low-grade fever a lot and blood cultures with the no recurrent fever to that patient will have Tylenol ordered but never received and management of which patient didn't have any fevers. Patient denied any dysuria. Urinalysis is not consistent with urinary tract infection. Patient is presently passing gas denied any bowel movements. Was having nauseaand vomiting yesterday. Patient was discharged from the hospital I believe from yesterday. Review of Systems REVIEW OF SYSTEMS: CONSTITUTIONAL: No fever, no malaise, no fatigue. HEENT: No recent visual problems or hearing problems. Denied any sore throat. CARDIOVASCULAR: No chest pain, orthopnea, PND, no palpitations, no syncope. PULMONARY: No shortness of breath, no cough, no hemoptysis. GASTROINTESTINAL:as mentioned in HPI NEUROLOGICAL: No headaches, no weakness, no numbness. HEMATOLOGICAL: Denies any bleeding or petechiae. GENITOURINARY: Denies any burning micturition, frequency, or urgency. MUSCULOSKELETAL/RHEUMATOLOGICAL: Denies any joint pain, swelling, or any muscle pain. ENDOCRINE: Denies any polyuria or polydipsia. The rest of the 14-point review of systems is negative. 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 R foot reconstruction Past Anesthesia/Blood Transfusion Reactions: No Reported Reaction Past Psychological History: No Psychological Hx Reported Smoking Status: Former smoker Past Alcohol Use History: Rare Past Drug Use History: None Reported - Past Family History Mother Family Medical History: Diabetes Mellitus Medications and Allergies Home Medications Medication Instructions Recorded Confirmed Type Amitriptyline HCl [Elavil] 25 mg PO HS PRN 04/30/20 05/04/20 History Cetirizine HCl [Zyrtec] 10 mg PO DAILY 04/30/20 05/04/20 History Cider Vinegar [Apple Cider Vinegar] 600 mg PO DAILY 04/30/20 05/04/20 History Fluticasone Nasal [place] [Flonase 1 spray EA NOSTRIL DAILY 04/30/20 05/04/20 History Nasal [place]] Lactobacillus Rhamnosus GG 1 cap PO DAILY 04/30/20 05/04/20 History [Culturelle] Levothyroxine Sodium [Synthroid] 112 mcg PO HS 04/30/20 05/04/20 History Magnesium Oxide [Vitale] 500 mg PO DAILY 04/30/20 05/04/20 History Propranolol [Inderal] 20 mg PO HS 04/30/20 05/04/20 History Riboflavin (Vitamin B2) [Vitamin 200 mg PO DAILY 04/30/20 05/04/20 History B-2] Ubidecarenone [Co Q-10] 200 mg PO DAILY 04/30/20 05/04/20 History busPIRone HCL 15 mg PO BID 04/30/20 05/04/20 History Psyllium Husk (with Sugar) 6 gm PO DAILY #575 gm 05/03/20 05/04/20 Rx [Metamucil Powder] Sennosides-Docusate Sodium 2 tab PO HS #60 tablet 05/03/20 05/04/20 Rx [Senokot-S] Simethicone [Gas-X] 62.5 mg PO TID PRN 05/04/20 05/04/20 History Allergies Allergy/AdvReac Type Severity Reaction Status Date / Time gluten AdvReac Nausea & Verified 05/04/20 08:21 Vomiting Physical Exam Vitals: Vital Signs Temp Pulse Pulse Resp BP BP Pulse Ox 05/04/20 14:00 98.3 F 62 17 149/78 92 L 05/04/20 07:34 98.7 F 75 16 134/69 92 L 05/04/20 03:31 97.7 F 65 18 138/77 93 L 05/04/20 02:03 100.6 F H 70 16 146/89 92 L 05/03/20 23:35 98.5 F 73 16 143/81 96 Intake and Output 05/04/20 05/04/20 05/04/20 06:59 14:59 22:59 Intake Total 1999 Balance 1999 Intake: Intake, IV Titration 1999 Amount Sodium Chloride 0.9% 2, 1999 000 ml @ 999 mls/hr IV . Q2H1M ONE Rx#:[id number] Other: Voiding Method Bedside Commode # Voids 1 Weight 90.718 kg PHYSICAL EXAMINATION: GENERAL: The patient is alert and oriented x3, not in any acute distress. Well developed, well nourished. HEENT: Pupils are round and equally reacting to light. EOMI. No scleral icterus. No conjunctival pallor. Normocephalic, atraumatic. No pharyngeal erythema. No thyromegaly. CARDIOVASCULAR: S1 and S2 present. No murmurs, rubs, or gallops. PULMONARY: Chest is clear to auscultation, no wheezing or crackles. ABDOMEN: Soft,mild epigastric abdominal tenderness. No rebound or rigidity, nondistended, normoactive bowel sounds. No palpable organomegaly. MUSCULOSKELETAL: No joint swelling or deformity. EXTREMITIES: No cyanosis, clubbing, or pedal edema. NEUROLOGICAL: Gross neurological examination did not reveal any focal deficits. SKIN: No rashes. Results CBC & Chem 7: 05/04/20 00:11 05/04/20 00:11 Labs: Abnormal Lab Results - Last 24 Hours (Table) 05/04/20 05/04/20 05/04/20 Range/Units 00:11 00:11 00:11 Lymphocytes # 0.9 L (1.0-4.8) k/uL Glucose 102 H (74-99) mg/dL Total Protein 6.0 L (6.3-8.2) g/dL Albumin 3.4 L (3.5-5.0) g/dL Urine Protein Trace H (Negative) Urine Ketones 2+ H (Negative) Thrombosis Risk Factor Assmnt - Choose All That Apply Any of the Below Risk Factors Present?: Yes Each Factor Represents 1 point: Obesity (BMI >25) Other Risk Factors: Yes Each Risk Factor Represents 2 Points: Age 61-74 years, Patient confined to bed Other congenital or acquired thrombophilia - If yes, enter type in comment: No Thrombosis Risk Factor Assessment Total Risk Factor Score: 5 Thrombosis Risk Factor Assessment Level: High Risk Assessment and Plan Plan: -partial small bowel obstruction: General surgery was consulted patient does have bowel is passing gas does have bowel sounds. Although still has a dilated bowel loops. Continue with IV fluids bowel rest -Epigastric abdominal pain: Possibly of gastritis: Patient will be started on Protonix -Patient is complaining sore throat probably due to NG tube will patient has some irritation in the throat. we simi order cepacol. -low-grade fever: Secondary to atelectasis monitor for any more fevers, ordered incentive spirometry. -DVT prophylaxis with Lovenox
--- NOTE | 2020-05-04 15:29 | P.GSCN ---
History of Present Illness Consult date: 05/04/20 History of present illness: CHIEF COMPLAINT: Small bowel obstruction HISTORY OF PRESENT ILLNESS: The patient is a 59 year old female who presents with recurrent small bowel obstruction upon her recent discharge. She had prior discharge and tolerated toast and eggs. Her gives most of the information over the telephone per patient request. She had gone home and had eggs and toast. She then developed severe abdominal pain. She was passing flatus prior to discharge. Upon admission, she reports no passage of flatus. She reports nausea including gagging from her NG tube. She has overall minimal output. She reports primarily epigastric abdominal pain however otherwise generalized. She is admitted for recurrent small bowel obstruction. Her surgical history is significant for donated kidney following open exploratory laparotomy. PAST MEDICAL HISTORY: See list and reviewed PAST SURGICAL HISTORY: See list and reviewed MEDICATIONS: See list and reviewed ALLERGIES: See list and reviewed SOCIAL HISTORY: See list and reviewed FAMILY HISTORY: See list and reviewed REVIEW OF ORGAN SYSTEMS: CONSTITUTIONAL: No fevers or chills. No recent weight loss. EYES: Denies any trouble with vision. No glasses. HEENT: No difficulties with hearing. No nosebleeds. No difficulty swallowing. RESPIRATORY: Denies pneumonia. Denies any troubles with breathing or dyspnea on exertion. CARDIOVASCULAR: Denies any chest pain, palpitations, or recent heart attacks. Has hypertension. GASTROINTESTINAL: Denies fatty food intolerance. Has change in bowel habits and gas bloat. GENITOURINARY: Donated one kidney. NEUROLOGICAL: Denies any numbness or tingling along the distal extremities. No seizure disorders or headaches. MUSCULOSKELETAL: Denies any back pain, stiffness or joint arthritis. SKIN: No current skin cancer. No rash. PSYCHIATRIC: Has depression. No suicidal thoughts. ENDOCRINE: Has thyroid disorders. Denies any blood sugar glucose intolerance. HEME/LYMPHATIC: Denies any lumps and bumps around the neck. No recent deep venous thrombosis. ALLERGY/IMMUNOLOGY: No immunoglobulin therapy. No immune deficiencies. BREAST: Denies current breast lumps, pain or nipple discharge. PHYSICAL EXAM: VITALS: Reviewed CONSTITUTIONAL: Well developed and in no acute distress. EYES: Conjuctivae without sclera icterus. Pupils are equally round and reactive to light. Extraocular movements grossly intact. HEAD, EARS, NOSE, THROAT: Moist buccal mucosa. Head is atraumatic, normocephalic. Hears conversational speech. No nasal drainage. Has NG tube. NECK: Supple. No JV distention. No thyroidomegaly. RESPIRATORY: Non-labored respirations and equal bilateral excursions. No gross wheezes. CARDIOVASCULAR: Regular rate and rhythm. Extremities without moderate edema. Palpable 2+ radial pulses. ABDOMEN: Well-healed lower midline incision. No palpable incisional hernias. No peritonitis. Abdomen mildly distended. LYMPH: No neck lymphadenopathy. MUSCULOSKELETAL: Nail and fingers with good capillary refill. SKIN: Warm and well perfused with good skin turgor. NEUROLOGIC: Cranial nerves II through XII grossly intact. Sensation upper and extremities intact. No focal or lateralizing signs. PSYCH: Appropriate affect. Alert and oriented to person, place and time. Displays appropriate insight. RECORDS: Previous old records reviewed with conservative management for small bowel obstruction. LABS: Reviewed. White blood cell count normal, 7.3. Hgb 11.8. STUDIES: Independently reviewed. CT of the abdomen and pelvis reviewed from previous admissions including from [facility] demonstrating dilated small bowel proximally however questional transmission point within the lower abdomen. This my independent interpretation. US of gallbladder removed without any gallstones identified. ASSESSMENT: 1. Small bowel obstruction due to peritoneal adhesions PLAN: 1. May have ice chips and popsicles. 2. Recommend EKG and cardiology workup prior to general anesthetic for diagnostic laparoscopy 3. Per patient request, minimally invasive approach requested. Laparoscopic lysis of adhesions described to patient and who agree with plan of care 4. Echo ordered for further cardiology workup Thank you for this kind consultation. 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 R foot reconstruction Past Anesthesia/Blood Transfusion Reactions: No Reported Reaction Past Psychological History: No Psychological Hx Reported Smoking Status: Former smoker Past Alcohol Use History: Rare Past Drug Use History: None Reported - Past Family History Mother Family Medical History: Diabetes Mellitus Medications and Allergies Home Medications Medication Instructions Recorded Confirmed Type Amitriptyline HCl [Elavil] 25 mg PO HS PRN 04/30/20 05/04/20 History Cetirizine HCl [Zyrtec] 10 mg PO DAILY 04/30/20 05/04/20 History Cider Vinegar [Apple Cider Vinegar] 600 mg PO DAILY 04/30/20 05/04/20 History Fluticasone Nasal [place] [Flonase 1 spray EA NOSTRIL DAILY 04/30/20 05/04/20 History Nasal [place]] Lactobacillus Rhamnosus GG 1 cap PO DAILY 04/30/20 05/04/20 History [Culturelle] Levothyroxine Sodium [Synthroid] 112 mcg PO HS 04/30/20 05/04/20 History Magnesium Oxide [Vitale] 500 mg PO DAILY 04/30/20 05/04/20 History Propranolol [Inderal] 20 mg PO HS 04/30/20 05/04/20 History Riboflavin (Vitamin B2) [Vitamin 200 mg PO DAILY 04/30/20 05/04/20 History B-2] Ubidecarenone [Co Q-10] 200 mg PO DAILY 04/30/20 05/04/20 History busPIRone HCL 15 mg PO BID 04/30/20 05/04/20 History Psyllium Husk (with Sugar) 6 gm PO DAILY #575 gm 05/03/20 05/04/20 Rx [Metamucil Powder] Sennosides-Docusate Sodium 2 tab PO HS #60 tablet 05/03/20 05/04/20 Rx [Senokot-S] Simethicone [Gas-X] 62.5 mg PO TID PRN 05/04/20 05/04/20 History Allergies Allergy/AdvReac Type Severity Reaction Status Date / Time gluten AdvReac Nausea & Verified 05/04/20 08:21 Vomiting Surgical - Exam Vital Signs Temp Pulse Resp BP Pulse Ox 98.5 F 73 16 143/81 96 05/03/20 23:35 05/03/20 23:35 05/03/20 23:35 05/03/20 23:35 05/03/20 23:35 Results - Labs 05/04/20 00:11 05/04/20 00:11 Abnormal Lab Results - Last 24 Hours (Table) 05/04/20 05/04/20 05/04/20 Range/Units 00:11 00:11 00:11 Lymphocytes # 0.9 L (1.0-4.8) k/uL Glucose 102 H (74-99) mg/dL Total Protein 6.0 L (6.3-8.2) g/dL Albumin 3.4 L (3.5-5.0) g/dL Urine Protein Trace H (Negative) Urine Ketones 2+ H (Negative) Diabetes panel 05/04/20 Range/Units 00:11 Sodium 137 (137-145) mmol/L Potassium 3.6 (3.5-5.1) mmol/L Chloride 107 (98-107) mmol/L Carbon Dioxide 25 (22-30) mmol/L BUN 8 (7-17) mg/dL Creatinine 0.89 (0.52-1.04) mg/dL Glucose 102 H (74-99) mg/dL Calcium 8.9 (8.4-10.2) mg/dL AST 18 (14-36) U/L ALT 10 (4-34) U/L Alkaline Phosphatase 71 (38-126) U/L Total Protein 6.0 L (6.3-8.2) g/dL Albumin 3.4 L (3.5-5.0) g/dL Calcium panel 05/04/20 Range/Units 00:11 Calcium 8.9 (8.4-10.2) mg/dL Albumin 3.4 L (3.5-5.0) g/dL Pituitary panel 05/04/20 Range/Units 00:11 Sodium 137 (137-145) mmol/L Potassium 3.6 (3.5-5.1) mmol/L Chloride 107 (98-107) mmol/L Carbon Dioxide 25 (22-30) mmol/L BUN 8 (7-17) mg/dL Creatinine 0.89 (0.52-1.04) mg/dL Glucose 102 H (74-99) mg/dL Calcium 8.9 (8.4-10.2) mg/dL Adrenal panel 05/04/20 Range/Units 00:11 Sodium 137 (137-145) mmol/L Potassium 3.6 (3.5-5.1) mmol/L Chloride 107 (98-107) mmol/L Carbon Dioxide 25 (22-30) mmol/L BUN 8 (7-17) mg/dL Creatinine 0.89 (0.52-1.04) mg/dL Glucose 102 H (74-99) mg/dL Calcium 8.9 (8.4-10.2) mg/dL Total Bilirubin 0.4 (0.2-1.3) mg/dL AST 18 (14-36) U/L ALT 10 (4-34) U/L Alkaline Phosphatase 71 (38-126) U/L Total Protein 6.0 L (6.3-8.2) g/dL Albumin 3.4 L (3.5-5.0) g/dL Assessment and Plan (1) Peritoneal adhesions Current Visit: Yes Status: Acute Code(s): K66.0 - PERITONEAL ADHESIONS (POSTPROCEDURAL) (POSTINFECTION) SNOMED Code(s): 03523333 (2) Small bowel obstruction Current Visit: No Status: Acute Code(s): K56.609 - UNSP INTESTNL OBST, UNSP TO PARTIAL VERSUS COMPLETE OBST SNOMED Code(s): 864622473 (3) Solitary kidney, acquired Current Visit: No Status: Acute Code(s): Z90.5 - ACQUIRED ABSENCE OF KIDNEY SNOMED Code(s): 072041929
[2020-05-04] MEDS: BENZOCAINE/MENTHOL LOZENG 1 EACH LOZENGE MUCOUS MEM PRN (17:50)
[2020-05-04] MEDS: LEVOTHYROXINE 112 MCG TAB PO SCH (21:32)
[2020-05-04] MEDS: PROPRANOLOL 20 MG TAB PO SCH (21:32)
[2020-05-04] MEDS: PANTOPRAZOLE 40 MG/10 ML VIAL IVP SCH (21:32)
[2020-05-04] MEDS: busPIRone HCl 5 MG TAB PO SCH (21:32)
[2020-05-04] MEDS: ZOLPIDEM 5 MG TAB PO PRN (22:46)
[2020-05-05] MEDS: SODIUM CHLORIDE 0.9% 1,000 ML IV SCH ×2 (04:41→21:37)
--- NOTE | 2020-05-05 07:44 | XR ---
EXAMINATION TYPE: XR abdomen 2V DATE OF EXAM: 05/05/2020 COMPARISON: NONE HISTORY: Pain TECHNIQUE: Single supine KUB image of the abdomen is obtained FINDINGS: Small bowel demonstrates no evidence for dilatation or air fluid levels. Gas and fecal material is seen in non-distended colon. No convincing evidence for pneumoperitoneum. No unusual calcifications. The lung bases are clear. The osseous structures are intact. IMPRESSION: 1. Overall nonobstructive bowel gas pattern.
[2020-05-05] MEDS: ENOXAPARIN 40 MG/0.4 ML SYRINGE SQ SCH (07:50)
[2020-05-05] MEDS: busPIRone HCl 5 MG TAB PO SCH ×2 (07:51→21:29)
[2020-05-05] MEDS: PANTOPRAZOLE 40 MG/10 ML VIAL IVP SCH ×2 (07:51→20:05)
[2020-05-05] MEDS: MAGNESIUM OXIDE 400 MG TAB PO SCH (07:52)
[2020-05-05] MEDS ORDERED: NON FORMULARY DRUG (Riboflavin (Vitamin B2) [Vitamin B-2] 50 MG Tablet) PO SCH (09:00)
[2020-05-05 11:31] LABS: African American GFR (CKD) 92.2 (60.0-200.0); Anion Gap 7.2 mmol/L (4.00-12.00); BUN/Creat Ratio 7.5 Ratio (12.00-20.00); Carbon Dioxide 23.8 mmol/L (21.6-31.8); Non-African American GFR(CKD) 79.6 (60.0-200.0); Potassium 3.3 mmol/L (3.5-5.5)
--- NOTE | 2020-05-05 11:58 | P.PN ---
Subjective 59-year-old female came in with complaints of severe epigastric sharp abdominal pain nonradiating. Patient was recently discharged from the hospital after she was treated for partial small bowel obstruction conservatively. Patient had a repeat CAT scan which showed dilated bowel loops NG tube was put in although there is no sick and drainage from the NG tube. CT also showed possible thickening of the gallbladder although patient doesn't have any right upper quadrant pain, tenderness, ultrasound did not show cholelithiasis or cholecystitis. Patient did have a low-grade fever a lot and blood cultures with the no recurrent fever to that patient will have Tylenol ordered but never received and management of which patient didn't have any fevers. Patient denied any dysuria. Urinalysis is not consistent with urinary tract infection. Pat ient is presently passing gas denied any bowel movements. Was having nauseaand vomiting yesterday. Patient was discharged from the hospital I believe from yesterday. 05/05/2020 Patient does have bowel sounds. did move her bowel. Patient's NG tube is out. General surgery is recommending laparotomy and additional lysis. Constitutional: Denied any fatigue denied any fever. Cardio vascular: denied any chest pain, palpitations Gastrointestinal denied any nausea vomiting Pulmonary: Denied any shortness of breath cough Neurologic denied any new focal deficits All inpatient medications were reviewed and appropriate changes in these medications as dictated in the interval history and assessment and plan. Objective - Vital Signs Vital signs: Vital Signs Temp 97.7 F 05/05/20 07:30 Pulse 63 05/05/20 07:30 Resp 18 05/05/20 07:30 BP 125/71 05/05/20 07:30 Pulse Ox 93 L 05/05/20 07:30 Intake & Output 05/04/20 05/05/20 05/05/20 18:59 06:59 18:59 Other: Voiding Method Toilet Bedside Commode # Voids 1 # Bowel Movements 1 - Exam PHYSICAL EXAMINATION: GENERAL: The patient is alert and oriented x3, not in any acute distress. Well developed, well nourished. HEENT: Pupils are round and equally reacting to light. EOMI. No scleral icterus. No conjunctival pallor. Normocephalic, atraumatic. No pharyngeal erythema. No thyromegaly. CARDIOVASCULAR: S1 and S2 present. No murmurs, rubs, or gallops. PULMONARY: Chest is clear to auscultation, no wheezing or crackles. ABDOMEN: Soft, nontender, nondistended, normoactive bowel sounds. No palpable organomegaly. MUSCULOSKELETAL: No joint swelling or deformity. EXTREMITIES: No cyanosis, clubbing, or pedal edema. NEUROLOGICAL: Gross neurological examination did not reveal any focal deficits. SKIN: No rashes. - Labs CBC & Chem 7: 05/04/20 00:11 05/05/20 06:37 Labs: Abnormal Lab Results - Last 24 Hours (Table) 05/05/20 Range/Units 06:37 Potassium 3.3 L (3.5-5.5) mmol/L BUN 6.0 L (9.0-27.0) mg/dL BUN/Creatinine Ratio 7.50 L (12.00-20.00) Ratio Calcium 8.0 L (8.7-10.3) mg/dL TSH 13.410 H (0.350-5.500) uIU/mL Assessment and Plan Plan: -partial small bowel obstruction: patient did move her bowels NG tube is of diet as per general surgery aspirin as of estrogen the surgery was planning on additional lysis and laparotomy although patient is doing well today medically. -Epigastric abdominal pain: Possibly of gastritis: Patient will be started on Protonix -Patient is complaining sore throat probably due to NG tube will patient has some irritation in the throat. On cepacol. -low-grade fever: Secondary to atelectasis monitor for any more fevers, ordered incentive spirometry. -DVT prophylaxis with Lovenox
--- NOTE | 2020-05-05 15:35 | P.PN ---
Subjective Progress Note Date: 05/05/20 CHIEF COMPLAINT: Small bowel obstruction HISTORY OF PRESENT ILLNESS: The patient is a 59 year old female who presents with recurrent small bowel obstruction. She reports passing flatus and having bowel movement. Her NG tube was discontinued earlier. She is tolerating ice chips and popsicles. REVIEW OF ORGAN SYSTEMS: No fevers or chills. No nausea or vomiting. PHYSICAL EXAM: VITALS: Reviewed CONSTITUTIONAL: Well developed and in no acute distress. EYES: Conjuctivae without sclera icterus. Pupils are equally round and reactive to light. Extraocular movements grossly intact. HEAD, EARS, NOSE, THROAT: Moist buccal mucosa. Head is atraumatic, normocephalic. Hears conversational speech. No nasal drainage. RESPIRATORY: Non-labored respirations and equal bilateral excursions. No gross wheezes. CARDIOVASCULAR: Regular rate and rhythm. Palpable 2+ radial pulses. ABDOMEN: Non-distended. No peritonitis MUSCULOSKELETAL: Nail and fingers with good capillary refill. SKIN: Warm and well perfused with good skin turgor. NEUROLOGIC: Cranial nerves II through XII grossly intact.o focal or lateralizing signs. PSYCH: Appropriate affect. Alert and oriented to person, place and time. LABS: Reviewed. TSH elevated over 13.0. STUDIES: Independently reviewed abdominal xray without free air. Moderate retained stool. Non-obstructive gas pattern. ASSESSMENT: 1. Small bowel obstruction due to peritoneal adhesions 2. Hypothyroidism PLAN: 1. Patient wished to proceed with diagnostic laparoscopy lysis of adhesions due to recurrent small bowel obstructions. 2. TSH demonstrates elevated TSH level and uncontrolled hypothyroidism, will need correction. Additional T4 ordered. 3. Additionally, cardiology risk assessment with echo ordered. 4. Increased dose of thyroxine ordered. Objective - Vital Signs Vital signs: Vital Signs Temp 97.7 F 05/05/20 07:30 Pulse 63 05/05/20 07:30 Resp 18 05/05/20 07:30 BP 125/71 05/05/20 07:30 Pulse Ox 93 L 05/05/20 07:30 Intake & Output 05/04/20 05/05/20 05/05/20 18:59 06:59 18:59 Other: Voiding Method Toilet Bedside Commode # Voids 1 # Bowel Movements 1 - Labs CBC & Chem 7: 05/04/20 00:11 05/05/20 06:37 Labs: Abnormal Lab Results - Last 24 Hours (Table) 05/05/20 Range/Units 06:37 Potassium 3.3 L (3.5-5.5) mmol/L BUN 6.0 L (9.0-27.0) mg/dL BUN/Creatinine Ratio 7.50 L (12.00-20.00) Ratio Calcium 8.0 L (8.7-10.3) mg/dL TSH 13.410 H (0.350-5.500) uIU/mL Assessment and Plan (1) Peritoneal adhesions Current Visit: Yes Status: Acute Code(s): K66.0 - PERITONEAL ADHESIONS (POSTPROCEDURAL) (POSTINFECTION) SNOMED Code(s): 34990334 (2) Small bowel obstruction Current Visit: No Status: Acute Code(s): K56.609 - UNSP INTESTNL OBST, UNSP TO PARTIAL VERSUS COMPLETE OBST SNOMED Code(s): 323092221 (3) Solitary kidney, acquired Current Visit: No Status: Acute Code(s): Z90.5 - ACQUIRED ABSENCE OF KIDNEY SNOMED Code(s): 833255861
[2020-05-05] MEDS: ONDANSETRON 4 MG/2 ML VIAL IVP PRN (18:03)
[2020-05-05] MEDS ORDERED: Potassium Replacement Protocol 1 EACH MISC MISCELLANE PRN (19:05)
[2020-05-05] MEDS: POTASSIUM CHLORIDE ER 20 MEQ TAB.ER PO SCH ×2 (20:05→21:28)
[2020-05-05] MEDS: LEVOTHYROXINE 112 MCG TAB PO SCH (21:29)
[2020-05-05] MEDS: PROPRANOLOL 20 MG TAB PO SCH (21:29)
[2020-05-05] MEDS: ZOLPIDEM 5 MG TAB PO PRN (21:29)
[2020-05-05] MEDS ORDERED: SCOPOLAMINE 1.5MG/72HR PATCH TRANSDERM SCH (21:45)
[2020-05-06] MEDS: POTASSIUM CHLORIDE ER 20 MEQ TAB.ER PO SCH ×2 (00:35→01:44)
[2020-05-06] MEDS: SODIUM CHLORIDE 0.9% 1,000 ML IV SCH ×4 (00:39→23:19)
[2020-05-06] MEDS: PANTOPRAZOLE 40 MG/10 ML VIAL IVP SCH ×2 (08:15→20:07)
[2020-05-06] MEDS: ENOXAPARIN 40 MG/0.4 ML SYRINGE SQ SCH ×2 (08:18→14:56)
[2020-05-06] MEDS: MAGNESIUM OXIDE 400 MG TAB PO SCH (08:18)
[2020-05-06] MEDS: busPIRone HCl 5 MG TAB PO SCH ×2 (08:18→20:21)
[2020-05-06] MEDS ORDERED: MELOXICAM 7.5 MG TAB PO SCH (09:00)
--- NOTE | 2020-05-06 10:23 | P.CRDCN ---
History of Present Illness History of present illness: HISTORY OF PRESENTING ILLNESS This is a pleasant 59-year-old female past medical history significant for celiac disease, migraine headaches and former nicotine dependence. She fol olivias in the office with Dr. Olmstead. We have been asked to see in consultation for preoperative evaluation. She presented to the hospital with symptoms of abdominal pain and has been diagnosed with a small bowel obstruction secondary to peritoneal adhesions. She is seen and examined sitting up in bed in no acute distress. She denies symptoms of chest pain, shortness of breath, dizziness or palpitations. She states on a regular basis she is somewhat physically active and denies exertional chest discomfort. She states she follows with cardiology secondary to what turned out to be an anxiety reaction a few years ago. She has undergone a stress test at that time that she states was normal. She has never had a cardiac catheterization. She does not recall ever being told in the past that she has an abnormal EKG. DIAGNOSTICS EKG reveals sinus mechanism with T-wave inversions noted in the anterior leads, there is no old for comparison.. Chest xray reveals bilateral atelectasis. Laboratory reviewed, CBC unremarkable, sodium 140, potassium 3.3, creatinine 0.8, TSH 13.4 and free T4 0.8. Current cardiac medications include propanolol 20 mg at bedtime for migraine headaches. REVIEW OF SYSTEMS At the time of my exam: CONSTITUTIONAL: Denies fever or chills. CARDIOVASCULAR: Denies chest pain, shortness of breath, orthopnea, PND or palpitations. RESPIRATORY: Denies cough. GASTROINTESTINAL: Complains of abdominal pain. Deniesnal pain, diarrhea, constipation, nausea or vomiting. MUSCULOSKELETAL: Denies myalgias. NEUROLOGIC: Denies numbness, tingling or weakness. ENDOCRINE: Denies fatigue, weight change, polydipsia or polyurina. GENITOURINARY: Denies burning, hematuria or urgency with micturation. HEMATOLOGIC: Denies history of anemia or bleeding. PHYSICAL EXAMINATION Blood pressure 144/76 heart rate 61 afebrile and maintaining oxygen saturation on room air. CONSTITUTIONAL: No apparent distress. HEENT: Head is normocephalic. Pupils are equal, round. Sclerae anicteric. Mucous membranes of the mouth are moist. No JVD. No carotid bruit. CHEST EXAMINATION: Lungs are clear to auscultation. No chest wall tenderness is noted on palpation or with deep breathing. HEART EXAMINATION: Regular rate and rhythm. S1, S2 heard. No murmurs, gallops or rub. ABDOMEN: Soft, nontender. Positive bowel sounds. EXTREMITIES: 2+ peripheral pulses, no lower extremity edema and no calf tend erness. NEUROLOGIC EXAMINATION: Patient is awake, alert and oriented x3. 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 Obtain 2D echocardiogram and doppler study to assess cardiac structure and function. Thank you kindly for this consultation. Nurse Practitioner note has been reviewed, I agree with a documented findings and plan of care. Patient was seen and examined. Past Medical History Additional Past Medical History / Comment(s): only had right kidney, Graves disease, Celiac disease, IBS History of Any Multi-Drug Resistant Organisms: None Reported Past Surgical History: Tubal Ligation Additional Past Surgical History / Comment(s): cervical fusion c2-c7, donated kidney. R foot reconstruction Past Anesthesia/Blood Transfusion Reactions: No Reported Reaction Past Psychological History: No Psychological Hx Reported Smoking Status: Former smoker Past Alcohol Use History: Rare Past Drug Use History: None Reported - Past Family History Mother Family Medical History: Diabetes Mellitus Medications and Allergies Home Medications Medication Instructions Recorded Confirmed Type Amitriptyline HCl [Elavil] 25 mg PO HS PRN 04/30/20 05/04/20 History Cetirizine HCl [Zyrtec] 10 mg PO DAILY 04/30/20 05/04/20 History Cider Vinegar [Apple Cider Vinegar] 600 mg PO DAILY 04/30/20 05/04/20 History Fluticasone Nasal Hendley [Flonase 1 spray EA NOSTRIL DAILY 04/30/20 05/04/20 History Nasal Hendley] Lactobacillus Rhamnosus GG 1 cap PO DAILY 04/30/20 05/04/20 History [Culturelle] Levothyroxine Sodium [Synthroid] 112 mcg PO HS 04/30/20 05/04/20 History Magnesium Oxide [Vitale] 500 mg PO DAILY 04/30/20 05/04/20 History Propranolol [Inderal] 20 mg PO HS 04/30/20 05/04/20 History Riboflavin (Vitamin B2) [Vitamin 200 mg PO DAILY 04/30/20 05/04/20 History B-2] Ubidecarenone [Co Q-10] 200 mg PO DAILY 04/30/20 05/04/20 History busPIRone HCL 15 mg PO BID 04/30/20 05/04/20 History Psyllium Husk (with Sugar) 6 gm PO DAILY #575 gm 05/03/20 05/04/20 Rx [Metamucil Powder] Sennosides-Docusate Sodium 2 tab PO HS #60 tablet 05/03/20 05/04/20 Rx [Senokot-S] Simethicone [Gas-X] 62.5 mg PO TID PRN 05/04/20 05/04/20 History Allergies Allergy/AdvReac Type Severity Reaction Status Date / Time gluten AdvReac Nausea & Verified 05/04/20 08:21 Vomiting Physical Exam Vitals: Vital Signs Temp Pulse Resp BP Pulse Ox 05/06/20 07:09 98.6 F 61 15 144/76 94 L 05/06/20 00:45 97.5 F L 66 16 132/72 94 L 05/05/20 19:30 98.0 F 62 20 169/84 94 L 05/05/20 14:25 98.7 F 64 20 139/74 93 L Intake and Output 05/05/20 05/06/20 05/06/20 22:59 06:59 14:59 Intake Total 1170 Balance 1170 Intake: Intake, IV Titration 1170 Amount Sodium Chloride 0.9% 1, 1170 000 ml @ 130 mls/hr IV . Q7H42M [facility] Rx#:[id number] Other: Voiding Method Toilet Bedside Commode # Voids 2 2 Results 05/04/20 00:11 05/05/20 23:52 Comprehensive Metabolic Panel 05/05/20 05/05/20 Range/Units 06:37 23:52 Sodium 140 (135-145) mmol/L Potassium 3.3 L 3.3 L (3.5-5.5) mmol/L Chloride 109 (96-109) mmol/L Carbon Dioxide 23.8 (21.6-31.8) mmol/L BUN 6.0 L (9.0-27.0) mg/dL Creatinine 0.8 (0.6-1.5) mg/dL Glucose 78 (70-110) mg/dL Calcium 8.0 L (8.7-10.3) mg/dL Current Medications Generic Name Dose Route Start Last Admin Trade Name Freq PRN Reason Stop Dose Admin Acetaminophen 650 mg 05/04/20 02:32 05/04/20 02:45 Acetaminophen Tab 325 Mg Tab PO 650 mg Q6HR PRN Administration Mild Pain or Fever > 100.5 Acetaminophen 1,000 mg 05/06/20 12:00 Acetaminophen Tab 500 Mg Tab PO 05/06/20 12:01 ONCE ONE Amitriptyline HCl 25 mg 05/04/20 14:11 Amitriptyline Hcl 25 Mg Tab PO HS PRN Migraine Headache Benzocaine 1 spray 05/04/20 04:02 05/04/20 05:07 Benzocaine Hendley 1 Can MUCOUS MEM 1 spray QID PRN Administration Mouth Irritation Benzocaine/Menthol 1 each 05/04/20 14:09 05/04/20 17:50 Benzocaine/Menthol Lozeng 1 Each Lozenge MUCOUS MEM 1 each Q4HR PRN Administration Sore Throat Buspirone HCl 15 mg 05/04/20 21:00 05/06/20 08:18 Buspirone Hcl 5 Mg Tab PO Not Given BID GINNA Enoxaparin Sodium 40 mg 05/05/20 09:00 05/06/20 08:18 Enoxaparin 40 Mg/0.4 Ml Syringe SQ Not Given DAILY GINNA Gabapentin 300 mg 05/06/20 12:00 Gabapentin 300 Mg Cap PO 05/06/20 12:01 ONCE ONE Hydromorphone HCl 0.5 mg 05/04/20 02:32 05/04/20 12:30 Hydromorphone 0.5 Mg/0.5 Ml Syringe IVP 0.5 mg Q3HR PRN Administration Moderate Pain Sodium Chloride 1,000 mls @ 130 mls/hr 05/04/20 02:45 05/06/20 08:17 Saline 0.9% IV 130 mls/hr .Q7H42M GINNA Administration Cefazolin Sodium 2 gm/ Sodium 50 mls @ 100 mls/hr 05/06/20 12:00 Chloride IVPB 05/06/20 12:01 ONCE PRN Pre-Op Levothyroxine Sodium 112 mcg 05/04/20 21:00 05/05/20 21:29 Levothyroxine 112 Mcg Tab PO 112 mcg HS GINNA Administration Levothyroxine Sodium 50 mcg 05/06/20 15:32 Levothyroxine 50 Mcg Tab PO 05/06/20 15:33 ONCE ONE Magnesium Oxide 400 mg 05/05/20 09:00 05/06/20 08:18 Magnesium Oxide 400 Mg Tab PO Not Given DAILY [facility] Meloxicam 7.5 mg 05/06/20 09:00 05/06/20 08:18 Meloxicam 7.5 Mg Tab PO Not Given DAILY [facility] Miscellaneous Information 1 each 05/05/20 19:05 Potassium Replacement Protocol 1 Each Misc MISCELLANE DAILY PRN Per Protocol Protocol Morphine Sulfate 4 mg 05/04/20 02:32 Morphine Sulfate 4 Mg/Ml Syringe IV Q4HR PRN Severe Pain Naloxone HCl 0.2 mg 05/04/20 02:32 Naloxone 0.4 Mg/Ml 1 Ml Vial IV Q2M PRN Opioid Reversal Ondansetron HCl 4 mg 05/04/20 02:32 05/05/20 18:03 Ondansetron 4 Mg/2 Ml Vial IVP 4 mg Q8HR PRN Administration Nausea And Vomiting Pantoprazole Sodium 40 mg 05/04/20 21:00 05/06/20 08:15 Pantoprazole 40 Mg/10 Ml Vial IVP 40 mg BID GINNA Administration Propranolol HCl 20 mg 05/04/20 21:00 05/05/20 21:29 Propranolol 20 Mg Tab PO 20 mg HS GINNA Administration Scopolamine 1 patch 05/06/20 12:00 Scopolamine 1.5mg/72hr Patch TRANSDERM Q72H [facility] Zolpidem Tartrate 10 mg 05/04/20 22:35 05/05/20 21:29 Zolpidem 5 Mg Tab PO 10 mg HS PRN Administration Insomnia Intake and Output 05/05/20 05/06/20 05/06/20 22:59 06:59 14:59 Intake Total 1170 Balance 1170 Intake: Intake, IV Titration 1170 Amount Sodium Chloride 0.9% 1, 1170 000 ml @ 130 mls/hr IV . Q7H42M [facility] Rx#:[id number] Other: Voiding Method Toilet Bedside Commode # Voids 2 2 05/04/20 00:11 05/05/20 23:52
[2020-05-06 10:56] VITALS: RESP 16
[2020-05-06 11:48] LABS: African American GFR (CKD) 92.2 (60.0-200.0); Anion Gap 7.6 mmol/L (4.00-12.00); BUN/Creat Ratio 6.25 Ratio (12.00-20.00); Calcium 8.6 mg/dL (8.7-10.3); Carbon Dioxide 24.4 mmol/L (21.6-31.8); Non-African American GFR(CKD) 79.6 (60.0-200.0)
[2020-05-06] MEDS ORDERED: SCOPOLAMINE 1.5MG/72HR PATCH TRANSDERM SCH (12:00)
[2020-05-06] MEDS ORDERED: GABAPENTIN 300 MG CAP PO ONE (12:00)
[2020-05-06] MEDS ORDERED: ACETAMINOPHEN TAB 500 MG TAB PO ONE (12:00)
--- NOTE | 2020-05-06 12:00 | ECHOF ---
Referral Reason:Hypertensive heart disease MEASUREMENTS -------- HEIGHT: 175.3 cm WEIGHT: 90.7 kg BP: IVSd: 1.2 cm (0.6 - 1.1) LVIDd: 4.6 cm (3.9 - 5.3) LVPWd: 1.6 cm (0.6 - 1.1) IVSs: 1.5 cm LVIDs: 3.7 cm LVPWs: 1.2 cm Ao Diam: 3.0 cm (2.0 - 3.7) AV Cusp: 1.6 cm (1.5 - 2.6) LA Diam: 3.4 cm (2.7 - 3.8) MV EXCURSION: 14.230 mm (> 18.000) MV EF SLOPE: 108 mm/s (70 - 150) EPSS: 0.5 cm MV E Gurmeet: 0.95 m/s MV DecT: 140 ms MV A Gurmeet: 0.72 m/s MV E/A Ratio: 1.31 FINDINGS -------- Sinus rhythm. This was a techncally difficult study with suboptimal views, , Definity utilized for enhancement of i mages. The left ventricular size is normal. There is mild concentric left ventricular hypertrophy. Overa ll left ventricular systolic function is normal with, an EF between 55 - 60 %. The right ventricle is normal in size. The left atrial size is normal. The right atrial size is normal. xx ml of Lumason was utilized for enhancement of images. The aortic valve is trileaflet, and appears structurally normal. No aortic stenosis or regurgitation. Mild mitral regurgitation is present. Mild tricuspid regurgitation present. Right ventricular systolic pressure is normal at < 35 mmHg. There is no pulmonic regurgitation present. The aortic root size is normal. There is no pericardial effusion. CONCLUSIONS -------- 1. This was a techncally difficult study with suboptimal views, , Definity utilized for enhancement o f images. 2. The left ventricular size is normal. 3. There is mild concentric left ventricular hypertrophy. 4. Overall left ventricular systolic function is normal with, an EF between 55 - 60 %. 5. The right ventricle is normal in size. 6. The left atrial size is normal. 7. The right atrial size is normal. 8. xx ml of Lumason was utilized for enhancement of images. 9. Mild mitral regurgitation is present. 10. Mild tricuspid regurgitation present. 11. The aortic root size is normal. 12. There is no pericardial effusion. COLLATOR OPERATOR: Yesica Ordaz RDCS
--- NOTE | 2020-05-06 13:42 | P.HPADDEND ---
H&P Addendum H&P Addendum Date: 05/06/20 Benefits of robotic lysis of adhesions described with possible open technique. Patient wants to proceed with surgery for recurrent small bowel obstruction due to adhesions. All options reviewed.
[2020-05-06] MEDS ORDERED: LACTATED RINGERS 1,000 ML IV ONE ×4 (14:32→16:27)
[2020-05-06] MEDS: ONDANSETRON 4 MG/2 ML VIAL IVP PRN (14:42)
[2020-05-06] MEDS ORDERED: LEVOTHYROXINE 50 MCG TAB PO ONE (15:32)
[2020-05-06] MEDS ORDERED: LIDOCAINE 1% INJ 10MG/ML (20 ML MDV) ONE (15:39)
[2020-05-06] MEDS ORDERED: NEOSTIGMINE 1 MG/ML 10 ML VIAL ONE (15:39)
[2020-05-06] MEDS ORDERED: SUCCINYLCHOLINE CHLORIDE 100 MG/5 ML SYR IV ONE (15:39)
[2020-05-06] MEDS ORDERED: MIDAZOLAM 2 MG/2 ML VIAL ONE (15:39)
[2020-05-06] MEDS ORDERED: fentaNYL (PF) 50 MCG/ML 2 ML AMP ONE (15:39)
[2020-05-06] MEDS ORDERED: ePHEDrine SULFATE/0.9% NACL/PF 50 MG/5 ML SYRINGE IV ONE (15:39)
[2020-05-06] MEDS ORDERED: LABETALOL 5 MG/ML VIAL MDV ONE (15:39)
[2020-05-06] MEDS ORDERED: HYDROmorphone (PF) 1 MG/ML ONE (15:39)
[2020-05-06] MEDS ORDERED: GLYCOPYRROLATE 0.2 MG/ML 2 ML VIAL ONE (15:39)
[2020-05-06] MEDS ORDERED: ROCURONIUM 10 MG/ML (10 ML VIAL) IV ONE (15:39)
[2020-05-06] MEDS ORDERED: PROPOFOL 10 MG/ML 20 ML VIAL IV ONE (15:39)
[2020-05-06] MEDS ORDERED: LIDOCAINE 1%-EPI 1:100,000 20 ML VIAL SQ ONE ×2 (16:07→16:20)
[2020-05-06] MEDS ORDERED: METOCLOPRAMIDE 5 MG/ML 2 ML VIAL IVP PRN (18:11)
[2020-05-06] MEDS ORDERED: TAMSULOSIN 0.4 MG CAP.ER.24H PO STA (18:11)
--- NOTE | 2020-05-06 18:23 | P.OP ---
Date of Procedure: 05/06/20 Description of Procedure: SURGEON: KAY CRUZ MD PREOPERATIVE DIAGNOSES: 1. Recurrent small bowel obstruction due to adhesions 2. History of multiple abdominal surgeries 3. History of peritoneal adhesions 4. Hypothyroidism 5. Hypertensive heart disease POSTOPERATIVE DIAGNOSES: 1. Recurrent small bowel obstruction due to adhesions 2. History of multiple abdominal surgeries 3. History of peritoneal adhesions 4. Hypothyroidism 5. Hypertensive heart disease 6. Severe peritoneal adhesions greater omentum to the abdominal wall 7. Severe interloop adhesions, right lower quadrant, distal jejunum to retroperitoneum with small bowel obstruction OPERATION: 1. Robotic-assisted da Freedom Xi laparoscopic extensive lysis of adhesions over 1 hr COMPLICATIONS: None. Anesthesia: GETA, local Estimated Blood Loss (ml): 5 Pathology: none sent Condition: stable OPERATIVE FINDINGS: 1. Severe peritoneal adhesions involving the jejunum interloop adhesions densely adherent to the right retroperitoneum creating partial small bowel obstruction INDICATIONS: The patient is a 59-year-old female who presents with severe adhesive band disease. Informed consent was obtained. Robotic assisted laparoscopic approach was described. Benefits and risks of the procedure including but not limited to bleeding, infection, injury to the small bowel was described. Informed consent was obtained. DESCRIPTION OF PROCEDURE: Patient was brought to the operating room, placed in supine position. After general induction, the abdomen had been prepped and draped in standard sterile fashion. The robotic da Freedom XI system was primed. After a timeout protocol was performed, the patient had been prepped and draped in standard sterile fashion. The robot was docked along the right lateral abdomen. The patient was repositioned in reverse Trendelenburg position of 14- degrees. A 5 mm 0 degrees laparoscopic trocar entry was performed along the left upper quadrant. The abdomen was insufflated to 15 mmHg pressure which he tolerated well. Diagnostic laparoscopy demonstrated severe intra-abdominal adhesions involving the midline including left upper quadrant.. The small bowel was remarkable for small bowel dilation suggestive of obstruction. No injury to the bowel, viscera or mes entery was identified. Next, three 8 mm robotic ports were placed along the right lateral abdomen abdomen. Please note that the ports were placed at least 8 cm away from the target anatomy. Instruments were interchanged using only 3 ports for a grasper, vessel sealer, and scissors with cautery. Instruments were interchanged by the assistant account executive including Bovie cautery scissors. I had sat at the console. Extensive lysis of adhesions over 1 hour was performed. Carefully the adhesions were taken down of greater omentum to the abdominal wall using vessel sealer. Interloop adhesions involving the distal jejunum with obstruction and transition point was addressed using scissors with cautery. No enterotomies occurred. The small bowel was investigated from ligament of Treitz towards the ileocecal valve all adhesions lysed. Hemostasis was checked. The robot was undocked. All pneumoperitoneum and instruments were evacuated from the abdominal cavity. The incisions were reapproximated using 4-0 Monocryl in an interrupted subcuticular fashion. Please note along the trocar sites, local anesthetic was placed as a field block prior to insertion of all instruments. Liquid glue was applied to the skin. Palencia catheter was placed secondary to distended bladder. At the end of the procedure needle, sponge, and instrument count had been verified correct by the certified surgical technologist. The patient was transferred to postanesthesia care unit in stable condition. Intraoperative images were described to her over the phone was placed at the level of care.
[2020-05-06] MEDS ORDERED: ACETAMINOPHEN IV (For NPO) 1,000 MG in EMPTY BAG 1 BAG IVPB ONE (18:30)
[2020-05-06] MEDS ORDERED: HYDROmorphone 1 MG/ML 1 ML SYRINGE IVP ONE (18:31)
--- NOTE | 2020-05-06 19:57 | P.PN ---
Subjective Progress Note Date: 05/06/20 59-year-old female came in with complaints of severe epigastric sharp abdominal pain nonradiating. Patient was recently discharged from the hospital after she was treated for partial small bowel obstruction conservatively. Patient had a repeat CAT scan which showed dilated bowel loops NG tube was put in although there is no sick and drainage from the NG tube. CT also showed possible thickening of the gallbladder although patient doesn't have any right upper quadrant pain, tenderness, ultrasound did not show cholelithiasis or cholecystitis. Patient did have a low-grade fever a lot and blood cultures with the no recurrent fever to that patient will have Tylenol ordered but never received and management of which patient didn't have any fevers. Patient denied any dysuria. Urinalysis is not consistent with urinary tract infection. Patient is presently passing gas denied any bowel movements. Was having nauseaand vomiting yesterday. Patient was discharged from the hospital I believe from yesterday. 05/05/2020 Patient does have bowel sounds. did move her bowel. Patient's NG tube is out. General surgery is recommending laparotomy and additional lysis. 05/06/2020 Pt for laparoscopic lysis of adhesions today, she is eager to proceed with surgery. She has been NPO, continues to complain of abdominal pain. Objective - Vital Signs Vital signs: Vital Signs Temp 97.5 F L 05/06/20 19:30 Pulse 57 L 05/06/20 19:42 Resp 16 05/06/20 19:42 BP 130/55 05/06/20 19:42 Pulse Ox 97 05/06/20 19:42 Intake & Output 05/06/20 05/06/20 05/07/20 06:59 18:59 06:59 Intake Total 1170 2175 200 Output Total 25 775 Balance 1170 2150 -575 Intake: IV 2175 200 Intake, IV Titration 1170 Amount Sodium Chloride 0.9% 1, 1170 000 ml @ 130 mls/hr IV . Q7H42M [facility] Rx#:[id number] Output: Urine 775 Estimated Blood Loss 25 Other: Voiding Method Toilet Indwelling Catheter Bedside Commode # Voids 2 - Exam General: well nourished, well developed, NAD. Vitals reviewed Lungs: normal respiratory effort, no wheezes or rales CV: Regular rate and rhythm, no murmur. Peripheral pulses 2+ Abdomen: soft, nondistended, no organomegaly. Generalized tenderness Skin: warm and dry. - Labs CBC & Chem 7: 05/04/20 00:11 05/06/20 06:40 Labs: Abnormal Lab Results - Last 24 Hours (Table) 05/05/20 05/06/20 Range/Units 23:52 06:40 Potassium 3.3 L (3.5-5.1) mmol/L BUN 5.0 L (9.0-27.0) mg/dL BUN/Creatinine Ratio 6.25 L (12.00-20.00) Ratio Calcium 8.6 L (8.7-10.3) mg/dL Microbiology - Last 24 Hours (Table) 05/04/20 14:46 Blood Culture - Preliminary Blood No Growth after 48 hours Assessment and Plan (1) Small bowel obstruction Current Visit: Yes Status: Acute Code(s): K56.609 - UNSP INTESTNL OBST, UNSP TO PARTIAL VERSUS COMPLETE OBST SNOMED Code(s): 473941057 (2) History of tubal ligation Current Visit: No Status: Acute Code(s): Z98.51 - TUBAL LIGATION STATUS SNOMED Code(s): 370361393 (3) Solitary kidney, acquired Current Visit: No Status: Acute Code(s): Z90.5 - ACQUIRED ABSENCE OF KIDNEY SNOMED Code(s): 322389273 Plan: Proceed with surgery today, continue IV fluids, reglan
[2020-05-06] MEDS: LEVOTHYROXINE 112 MCG TAB PO SCH (20:07)
[2020-05-06] MEDS: PROPRANOLOL 20 MG TAB PO SCH (22:09)
[2020-05-06] MEDS: ONDANSETRON 4 MG/2 ML VIAL IVP SCH (23:18)
[2020-05-06] MEDS: KETOROLAC 15 MG/ML 1 ML VIAL IVP SCH (23:18)
[2020-05-07] MEDS: BENZOCAINE/MENTHOL LOZENG 1 EACH LOZENGE MUCOUS MEM PRN ×2 (01:49→05:05)
[2020-05-07] MEDS: ONDANSETRON 4 MG/2 ML VIAL IVP SCH ×3 (05:05→16:16)
[2020-05-07] MEDS: KETOROLAC 15 MG/ML 1 ML VIAL IVP SCH ×3 (05:05→16:16)
[2020-05-07] MEDS: SODIUM CHLORIDE 0.9% 1,000 ML IV SCH ×2 (05:06→16:16)
[2020-05-07] MEDS ORDERED: TAMSULOSIN 0.4 MG CAP.ER.24H PO SCH (08:30)
[2020-05-07] MEDS: ENOXAPARIN 40 MG/0.4 ML SYRINGE SQ SCH (09:27)
[2020-05-07] MEDS: PANTOPRAZOLE 40 MG/10 ML VIAL IVP SCH (09:27)
[2020-05-07] MEDS: MAGNESIUM OXIDE 400 MG TAB PO SCH (09:28)
[2020-05-07] MEDS: busPIRone HCl 5 MG TAB PO SCH (09:28)
[2020-05-07 10:22] LABS: African American GFR (CKD) 108.4 (60.0-200.0); Anion Gap -0.9 mmol/L (4.00-12.00); BUN/Creat Ratio 8.57 Ratio (12.00-20.00); Calcium 8.3 mg/dL (8.7-10.3); Carbon Dioxide 24.9 mmol/L (21.6-31.8); Non-African American GFR(CKD) 93.5 (60.0-200.0); Potassium 3.9 mmol/L (3.5-5.5)
--- NOTE | 2020-05-07 14:20 | P.PN ---
Subjective Progress Note Date: 05/07/20 CHIEF COMPLAINT: Recurrent small bowel obstruction HISTORY OF PRESENT ILLNESS: This is a 59-year-old female who presented with abdominal pain. She had found have evidence of recurrent small bowel traction due to adhesions. She is status post Robotic-assisted da Freedom Xi laparoscopic extensive lysis of adhesions over 1 hr. Patient tolerated surgery well. Her pain is minimal and controlled. She denies any nausea or vomiting. She is passing gas. She is tolerating a regular diet. Afebrile. PHYSICAL EXAM: VITAL SIGNS: Reviewed. GENERAL: Well-developed in no acute distress. HEENT: No sclera icterus. Extraocular movements grossly intact. Moist buccal mucosa. Head is atraumatic, normocephalic. ABDOMEN: Soft. Nondistended. Incision sites clean dry and intact NEUROLOGIC: Alert and oriented. Cranial nerves II through XII grossly intact. ASSESSMENT: 1. Recurrent small bowel obstruction due to adhesions 2. History of multiple abdominal surgeries 3. History of peritoneal adhesions 4. Hypothyroidism 5. Hypertensive heart disease 6. Severe peritoneal adhesions greater omentum to the abdominal wall 7. Severe interloop adhesions, right lower quadrant, distal jejunum to retrope ritoneum with small bowel obstruction PLAN: -Patient is stable from surgical standpoint for discharge -Continue regular diet -Continue Tylenol as needed for pain control [employer] Consultant note has been reviewed by physician. Signing provider agrees with the documented findings, assessment, and plan of care. Objective - Vital Signs Vital signs: Vital Signs Temp 98.3 F 05/07/20 07:50 Pulse 59 L 05/07/20 07:50 Resp 16 05/07/20 07:50 BP 121/72 05/07/20 07:50 Pulse Ox 94 L 05/07/20 07:50 Intake & Output 05/06/20 05/07/20 05/07/20 18:59 06:59 18:59 Intake Total 2175 200 120 Output Total 25 1875 Balance 2150 -1675 120 Intake: IV 2175 200 Oral 120 Output: Urine 1875 Estimated Blood Loss 25 Other: Voiding Method Toilet Toilet # Voids 1 - Labs CBC & Chem 7: 05/04/20 00:11 05/07/20 05:49 Labs: Abnormal Lab Results - Last 24 Hours (Table) 05/07/20 Range/Units 05:49 Chloride 116 H (96-109) mmol/L Anion Gap -0.90 L (4.00-12.00) mmol/L BUN 6.0 L (9.0-27.0) mg/dL BUN/Creatinine Ratio 8.57 L (12.00-20.00) Ratio Calcium 8.3 L (8.7-10.3) mg/dL Microbiology - Last 24 Hours (Table) 05/04/20 14:46 Blood Culture - Preliminary Blood No Growth after 48 hours
[2020-05-07 14:56] VITALS: BP 115/71; PULSE 52; TEMP 98
[2020-05-07] MEDS ORDERED: PANTOPRAZOLE 40 MG TABLET PO SCH (21:00)
--- NOTE | 2020-05-12 17:54 | P.DS ---
Providers Date of admission: 05/04/20 02:33 Expected date of discharge: 05/07/20 Attending physician: Lazaro Brown MD Consults: 05/04/20 14:09 Consult Physician Routine Consulting Provider: Consuelo Espitia Consult Reason/Comments: Partial small bowel obstruction Do you want consulting provider notified?: Yes 05/05/20 15:33 Consult Physician Routine Consulting Provider: Clyde Souza Consult Reason/Comments: Cardiac clearance for surgery, ECHO ordered Do you want consulting provider notified?: Yes 05/05/20 21:34 Consult Physician Routine Consulting Provider: [facility] Consult Reason/Comments: [facility] Do you want consulting provider notified?: Yes Primary care physician: Lazaro Brown MD - Discharge Diagnosis(es) (1) Small bowel obstruction Status: Acute (2) History of tubal ligation Status: Acute (3) Solitary kidney, acquired Status: Acute Hospital Course: 59-year-old female came in with complaints of severe epigastric sharp abdominal pain nonradiating. Patient was recently discharged from the hospital after she was treated for partial small bowel obstruction conservatively. Patient had a repeat CAT scan which showed dilated bowel loops NG tube was put in although there is no sick and drainage from the NG tube. CT also showed possible thickening of the gallbladder although patient doesn't have any right upper quadrant pain, tenderness, ultrasound did not show cholelithiasis or cholecystitis. Patient did have a low-grade fever a lot and blood cultures with the no recurrent fever to that patient will have Tylenol ordered but never received and management of which patient didn't have any fevers. Patient denied any dysuria. Urinalysis is not consistent with urinary tract infection. Patient is presently passing gas denied any bowel movements. Was having nauseaand vomiting yesterday. Patient was discharged from the hospital I believe from yesterday. 05/05/2020 Patient does have bowel sounds. did move her bowel. Patient's NG tube is out. General surgery is recommending laparotomy and additional lysis. 05/06/2020 Pt for laparoscopic BRADLY today. 05/07/2020. She is s/p lysis of adhesions and release of her SBO. She tolerated diet today, denies any abdominal pain, nausea or vomiting. She is passing gas. Cleared for discharge by surgery, recommend she follow up with PCP and surgeon within 1-2 weeks of discharge. Discharge exam: General: well developed, well nourished, NAD CV: RRR, no murmur Lungs: normal effort clear throughout Abd: soft, nontender Patient Condition at Discharge: Fair Plan - Discharge Summary Discharge Rx Participant: Yes New Discharge Prescriptions: New Acetaminophen Tab [Tylenol Tab] 650 mg PO Q4H PRN #30 tablet PRN Reason: Pain Continue Fluticasone Nasal [place] [Flonase Nasal [place]] 1 spray EA NOSTRIL DAILY Cider Vinegar [Apple Cider Vinegar] 600 mg PO DAILY Riboflavin (Vitamin B2) [Vitamin B-2] 200 mg PO DAILY Magnesium Oxide [Vitale] 500 mg PO DAILY Lactobacillus Rhamnosus GG [Culturelle] 1 cap PO DAILY Cetirizine HCl [Zyrtec] 10 mg PO DAILY busPIRone HCL 15 mg PO BID Propranolol [Inderal] 20 mg PO HS Levothyroxine Sodium [Synthroid] 112 mcg PO HS Amitriptyline HCl [Elavil] 25 mg PO HS PRN PRN Reason: Migraine Headache Ubidecarenone [Co Q-10] 200 mg PO DAILY Psyllium Husk (with Sugar) [Metamucil Powder] 6 gm PO DAILY #575 gm Sennosides-Docusate Sodium [Senokot-S] 2 tab PO HS #60 tablet Simethicone [Gas-X] 62.5 mg PO TID PRN PRN Reason: GAS Discharge Medication List Amitriptyline HCl [Elavil] 25 mg PO HS PRN 04/30/20 [History] Cetirizine HCl [Zyrtec] 10 mg PO DAILY 04/30/20 [History] Cider Vinegar [Apple Cider Vinegar] 600 mg PO DAILY 04/30/20 [History] Fluticasone Nasal [place] [Flonase Nasal [place]] 1 spray EA NOSTRIL DAILY 04/30/20 [History] Lactobacillus Rhamnosus GG [Culturelle] 1 cap PO DAILY 04/30/20 [History] Levothyroxine Sodium [Synthroid] 112 mcg PO HS 04/30/20 [History] Magnesium Oxide [Vitale] 500 mg PO DAILY 04/30/20 [History] Propranolol [Inderal] 20 mg PO HS 04/30/20 [History] Riboflavin (Vitamin B2) [Vitamin B-2] 200 mg PO DAILY 04/30/20 [History] Ubidecarenone [Co Q-10] 200 mg PO DAILY 04/30/20 [History] busPIRone HCL 15 mg PO BID 04/30/20 [History] Psyllium Husk (with Sugar) [Metamucil Powder] 6 gm PO DAILY #575 gm 05/03/20 [Rx] Sennosides-Docusate Sodium [Senokot-S] 2 tab PO HS #60 tablet 05/03/20 [Rx] Simethicone [Gas-X] 62.5 mg PO TID PRN 05/04/20 [History] Acetaminophen Tab [Tylenol Tab] 650 mg PO Q4H PRN #30 tablet 05/07/20 [Rx] Follow up Appointment(s)/Referral(s): Lazaro Brown MD [Primary Care Provider] - 05/13/20 1:45 pm (patient will be seen in the [facility]) Consuelo Espitia MD [STAFF PHYSICIAN] - 05/14/20 4:45 pm Patient Instructions/Handouts: *Surgery [facility] - Scopalamine Patch Instructions, Lysis of Abdominal Adhesions (DC) Activity/Diet/Wound Care/Special Instructions: Wear abdominal binder at all times for comfort. No lifting over 4 pounds in 4 weeks until Jun 03. September shower. No bath tub soaks for two weeks until May 20 Avoid steak, tough meats and seeds such as raspberry seeds. Use ice along incisions for the today to prevent swelling. Diet Regular Discharge Disposition: HOME SELF-CARE
== END 2020-05-07 16:40 | disposition home or self-care (01) | DRG 336 ==
LOC: EC 23:34 → 5NMEDONC 05-04 02:33
PROVIDERS: ADMIT Family Medicine; ATTEND Family Medicine
PROC: 0DNW4ZZ Release Peritoneum, Percutaneous Endoscopic Approach (ICD-10-PCS; principal; 2020-05-06 07:30)
PROC: 8E0W4CZ Robotic Assisted Procedure of Trunk Region, Percutaneous Endoscopic Approach (ICD-10-PCS; principal; 2020-05-06 07:30)
DX: K56.51 Intestinal adhesions [bands], with partial obstruction (principal); J98.11 Atelectasis; I11.9 Hypertensive heart disease without heart failure; E03.9 Hypothyroidism, unspecified; G43.909 Migraine, unspecified, not intractable, without status migrainosus; K90.0 Celiac disease; K58.9 Irritable bowel syndrome, unspecified; E05.00 Thyrotoxicosis with diffuse goiter without thyrotoxic crisis or storm; K29.70 Gastritis, unspecified, without bleeding; Z90.5 Acquired absence of kidney; Z87.891 Personal history of nicotine dependence; Z98.51 Tubal ligation status; Z98.1 Arthrodesis status; Z79.890 Hormone replacement therapy; Z79.899 Other long term (current) drug therapy; Z83.3 Family history of diabetes mellitus
CPT/HCPCS: 36415; 74019; 74176; 76705; 80048; 80053; 81003; 82150; 83690; 84132; 84439; 84443; 85025; 87040; 93005; 93306; 96374; 96375; 96376; 99285

== ENCOUNTER 2022-10-06 22:40 | Emergency (ER) | payer OTHER ==
[2022-10-06 22:46] VITALS: TEMP 97.8
[2022-10-06] MEDS ORDERED: SODIUM CHLORIDE 0.9% 1,000 ML IV STA (23:33)
[2022-10-06 23:57] LABS: Basophils % (A) 0 %; Eosinophils # (A) 0.1 k/uL (0-0.7); Eosinophils % (A) 1 %; HCT 41.4 % (34.0-46.0); HGB 13.5 gm/dL (11.4-16.0); Lymphocytes # (A) 0.7 k/uL (1.0-4.8); Lymphocytes % (A) 6 %; MCH 29.8 pg (25.0-35.0); MCHC 32.6 g/dL (31.0-37.0); MCV 91.6 fL (80.0-100.0); Mean Platelet Volume 7.6; Monocytes # (A) 0.3 k/uL (0-1.0); Monocytes % (A) 2 %; Neutrophils # (A) 11.1 k/uL (1.3-7.7); Neutrophils % (A) 90 %; Platelet Count 266 k/uL (150-450); RBC 4.52 m/uL (3.80-5.40); RDW 13.5 % (11.5-15.5); WBC 12.3 k/uL (3.8-10.6)
[2022-10-07 00:05] LABS: Albumin 4.3 g/dL (3.5-5.0); Calcium 9.5 mg/dL (8.4-10.2); Potassium 4.2 mmol/L (3.5-5.1); Total Bilirubin 0.5 mg/dL (0.2-1.3); Total Protein 7.1 g/dL (6.3-8.2)
[2022-10-07 00:19] LABS: INR 0.9 (<1.2); Partial Thromboplastin Time 21.4 sec (22.0-30.0); Prothrombin Time 9.4 sec (9.0-12.0)
--- NOTE | 2022-10-07 00:53 | ED ---
Abdominal Pain HPI - General Chief Complaint: Abdominal Pain Stated Complaint: Abd Pain Time Seen by Provider: 10/06/22 23:29 Source: patient, family Mode of arrival: wheelchair Limitations: no limitations - History of Present Illness Initial Comments: Patient is a 62-year-old female presenting with chief complaint of abdominal pain. Patient is having lower abdominal pain that radiates up into the epigastric region. She states it feels like she is having reflux. Pain is sharp. Has been going on since 3:00 this afternoon. No nausea or vomiting. She had a normal bowel movement earlier today. She has a history of small bowel obstruction. No dysuria or hematuria. No fevers or chills. No difficulty breathing. No URI like symptoms. - Related Data Home Medications Medication Instructions Recorded Confirmed Amitriptyline HCl [Elavil] 25 mg PO HS PRN 04/30/20 05/04/20 Cetirizine HCl [Zyrtec] 10 mg PO DAILY 04/30/20 05/04/20 Cider Vinegar [Apple Cider Vinegar] 600 mg PO DAILY 04/30/20 05/04/20 Fluticasone Nasal [place] [Flonase 1 spray EA NOSTRIL DAILY 04/30/20 05/04/20 Nasal [place]] Lactobacillus Rhamnosus GG 1 cap PO DAILY 04/30/20 05/04/20 [Culturelle] Levothyroxine Sodium [Synthroid] 112 mcg PO HS 04/30/20 05/04/20 Magnesium Oxide [Vitale] 500 mg PO DAILY 04/30/20 05/04/20 Propranolol [Inderal] 20 mg PO HS 04/30/20 05/04/20 Riboflavin (Vitamin B2) [Vitamin 200 mg PO DAILY 04/30/20 05/04/20 B-2] Ubidecarenone [Co Q-10] 200 mg PO DAILY 04/30/20 05/04/20 busPIRone HCL 15 mg PO BID 04/30/20 05/04/20 Simethicone [Gas-X Strip] 62.5 mg PO TID PRN 05/04/20 05/04/20 Previous Rx's Medication Instructions Recorded Psyllium Husk (with Sugar) 6 gm PO DAILY #575 gm 05/03/20 [Metamucil Powder] Sennosides-Docusate Sodium 2 tab PO HS #60 tablet 05/03/20 [Senokot-S] Acetaminophen Tab [Tylenol Tab] 650 mg PO Q4H PRN #30 tablet 05/07/20 Dicyclomine [Bentyl] 10 mg PO QID #20 capsule 10/07/22 Ondansetron Odt [Zofran Odt] 4 mg PO Q8HR PRN #20 tab 10/07/22 Allergies Allergy/AdvReac Type Severity Reaction Status Date / Time Penicillins Allergy Rash/Hives Verified 10/06/22 22:47 gluten AdvReac Nausea & Verified 05/04/20 08:21 Vomiting Review of Systems ROS Statement: Those systems with pertinent positive or pertinent negative responses have been documented in the HPI. ROS Other: All systems not noted in ROS Statement are negative. Past Medical History Additional Past Medical History / Comment(s): only had right kidney, Graves disease, Celiac disease, IBS, small bowel obstruction History of Any Multi-Drug Resistant Organisms: None Reported Past Surgical History: Hysterectomy, Tubal Ligation Additional Past Surgical History / Comment(s): cervical fusion c2-c7, donated kidney. R foot reconstruction Past Anesthesia/Blood Transfusion Reactions: No Reported Reaction Past Psychological History: No Psychological Hx Reported Smoking Status: Former smoker Past Alcohol Use History: Rare Past Drug Use History: None Reported - Past Family History Mother Family Medical History: Diabetes Mellitus General Exam Limitations: no limitations General appearance: alert, in no apparent distress Head exam: Present: atraumatic, normocephalic, normal inspection Eye exam: Present: normal appearance, EOMI. Absent: scleral icterus, periorbital swelling Neck exam: Present: normal inspection, full ROM Respiratory exam: Present: normal lung sounds bilaterally. Absent: respiratory distress, wheezes, rales, rhonchi, stridor Cardiovascular Exam: Present: regular rate, normal rhythm, normal heart sounds. Absent: systolic murmur, diastolic murmur, rubs, gallop, clicks GI/Abdominal exam: Present: soft. Absent: distended, tenderness, guarding, rebound, rigid Neurological exam: Present: alert, oriented X3, CN II-XII intact Psychiatric exam: Present: normal affect, normal mood Skin exam: Present: warm, dry, intact, normal color. Absent: rash Course Vital Signs 10/06/22 10/07/22 22:43 02:20 Temperature 97.8 F Pulse Rate 74 65 Respiratory 16 18 Rate Blood Pressure 149/84 144/80 O2 Sat by Pulse 95 94 L Oximetry Medical Decision Making - Medical Decision Making Was pt. sent in by a medical professional or institution ([facility], [employer], urgent care, hospital, or senior care...) When possible be specific @ -No Did you speak to anyone other than the patient for history (EMS, parent, family, police, friend...)? What history was obtained from this source @ -No Did you review nursing and triage notes (agree or disagree)? Why? @ -I reviewed and agree with nursing and triage notes Were old charts reviewed (outside hosp., previous admission, EMS record, old EKG, old radiological studies, urgent care reports/EKG's, senior care records)? Report findings @ -No old charts were reviewed Differential Diagnosis (chest pain, altered mental status, abdominal pain women, abdominal pain men, vaginal bleeding, weakness, fever, dyspnea, syncope, headache, dizziness, GI bleed, back pain, seizure, CVA, palpatations, mental health, musculoskeletal)? @ -MDM Differential Abdominal Pain Women: Appendicitis, Cholecystitis, diverticulosis, ischemic bowel, pancreatitis, hepatitis, UTI, gastroenteritis, AAA, incarcerated hernia, bowel obstruction, constipation, inflammatory bowel, hepatitis, peptic ulcer disease, splenic infarction, perforated viscus, vulvitis, ovarian torsion, PID, kidney stone, placenta abruption... This is not meant to be an all-inclusive list EKG interpreted by me (3pts min.). @ -Sinus rhythm ventricular rate 65. MI interval 157. QRS 98. QT 406. QTc 418. No ischemic changes. Normal axis. X-rays interpreted by me (1pt min.). @ -None done CT interpreted by me (1pt min.). @ -CT shows diffusely fluid-filled bowel loops with no signs of obstruction U/S interpreted by me (1pt. min.). @ -None done What testing was considered but not performed or refused? (CT, X-rays, U/S, labs)? Why? @ -None What meds were considered but not given or refused? Why? @ -None Did you discuss the management of the patient with other professionals (professionals i.e. [facility], [employer], lab, RT, psych nurse, social service agency director, oss architect, teacher, sales and service officer, pillowcase cleaner)? Give summary @ -No Was smoking cessation discussed for >3mins.? @ -No Was critical care preformed (if so, how long)? @ -No Were there social determinants of health that impacted care today? How? (Homelessness, low income, unemployed, alcoholism, drug addiction, transportation, low edu. Level, literacy, decrease access to med. care, prison, rehab)? @ -No Was there de-escalation of care discussed even if they declined (Discuss DNR or withdrawal of care, Hospice)? DNR status @ -No What co-morbidities impacted this encounter? (DM, HTN, Smoking, COPD, CAD, Cancer, CVA, ARF, Chemo, Hep., AIDS, mental health diagnosis, sleep apnea, morbid obesity)? @ -None Was patient admitted / discharged? Hospital course, mention meds given and route, prescriptions, significant lab abnormalities, going to OR and other pertinent info. @ -This is a 62-year-old female presenting with chief complaint of lower abdominal pain which radiates up into the epigastric region. No vomiting or diarrhea. Physical examination is unremarkable. EKG shows no acute findings. WBC 12.3. Troponin is negative. BUN 19 and creatinine 1.10, likely a component of dehydration however there are no recent values for comparison. CT shows diffusely fluid-filled bowel loops. Appears consistent with enteritis. Patient is educated on these findings. On reassessment patient is resting comfortably in bed. She is agreeable to discharge home at this time.Follow-up with PCP. Report back to ER with any new or worsening symptoms. Discussed return parameters and answered all questions. Patient conveyed verbal understanding and agreed to the plan. I discussed this case in detail with my attending Dr. Munoz Undiagnosed new problem with uncertain prognosis? @ -No Drug Therapy requiring intensive monitoring for toxicity (Heparin, Nitro, Insulin, Cardizem)? @ -No Were any procedures done? @ -No Diagnosis/symptom? @ -Enteritis Acute, or Chronic, or Acute on Chronic? @ -Acute Uncomplicated (without systemic symptoms) or Complicated (systemic symptoms)? @ -Uncomplicated Side effects of treatment? @ -No Exacerbation, Progression, or Severe Exacerbation? @ -No Poses a threat to life or bodily function? How? (Chest pain, [place], GA, pneumonia, PE, COPD, DKA, ARF, appy, cholecystitis, CVA, Diverticulitis, Homicidal, Suicidal, threat to staff... and all critical care pts) @ -No - Lab Data Result diagrams: 10/06/22 23:44 10/06/22 23:44 Lab Results 10/06/22 10/06/22 10/06/22 Range/Units 02:11 23:44 23:44 WBC 12.3 H (3.8-10.6) k/uL RBC 4.52 (3.80-5.40) m/uL Hgb 13.5 (11.4-16.0) gm/dL Hct 41.4 (34.0-46.0) % MCV 91.6 (80.0-100.0) fL MCH 29.8 (25.0-35.0) pg MCHC 32.6 (31.0-37.0) g/dL RDW 13.5 (11.5-15.5) % Plt Count 266 (150-450) k/uL MPV 7.6 Neutrophils % 90 % Lymphocytes % 6 % Monocytes % 2 % Eosinophils % 1 % Basophils % 0 % Neutrophils # 11.1 H (1.3-7.7) k/uL Lymphocytes # 0.7 L (1.0-4.8) k/uL Monocytes # 0.3 (0-1.0) k/uL Eosinophils # 0.1 (0-0.7) k/uL Basophils # 0.0 (0-0.2) k/uL PT (9.0-12.0) sec INR (<1.2) APTT (22.0-30.0) sec Sodium 138 (137-145) mmol/L Potassium 4.2 (3.5-5.1) mmol/L Chloride 105 (98-107) mmol/L Carbon Dioxide 20 L (22-30) mmol/L Anion Gap 13 mmol/L BUN 19 H (7-17) mg/dL Creatinine 1.10 H (0.52-1.04) mg/dL Est GFR (CKD-EPI)AfAm 61 (>60 ml/min/1.73 sqM) Est GFR (CKD-EPI)NonAf 53 (>60 ml/min/1.73 sqM) Glucose 145 H (74-99) mg/dL Plasma Lactic Acid Eris (0.7-2.0) mmol/L Calcium 9.5 (8.4-10.2) mg/dL Total Bilirubin 0.5 (0.2-1.3) mg/dL AST 28 (14-36) U/L ALT 28 (4-34) U/L Alkaline Phosphatase 110 (38-126) U/L Troponin I (0.000-0.034) ng/mL Total Protein 7.1 (6.3-8.2) g/dL Albumin 4.3 (3.5-5.0) g/dL Amylase 65 (30-110) U/L Lipase 101 (23-300) U/L Urine Color Yellow Urine Appearance Clear (Clear) Urine pH 5.5 (5.0-8.0) Ur Specific [place] 1.014 (1.001-1.035) Urine Protein Negative (Negative) Urine Glucose (UA) Negative (Negative) Urine Ketones Trace H (Negative) Urine Blood Negative (Negative) Urine Nitrite Negative (Negative) Urine Bilirubin Negative (Negative) Urine Urobilinogen <2.0 (<2.0) mg/dL Ur Leukocyte Esterase Negative (Negative) 10/06/22 10/06/22 10/06/22 Range/Units 23:44 23:44 23:44 WBC (3.8-10.6) k/uL RBC (3.80-5.40) m/uL Hgb (11.4-16.0) gm/dL Hct (34.0-46.0) % MCV (80.0-100.0) fL MCH (25.0-35.0) pg MCHC (31.0-37.0) g/dL RDW (11.5-15.5) % Plt Count (150-450) k/uL MPV Neutrophils % % Lymphocytes % % Monocytes % % Eosinophils % % Basophils % % Neutrophils # (1.3-7.7) k/uL Lymphocytes # (1.0-4.8) k/uL Monocytes # (0-1.0) k/uL Eosinophils # (0-0.7) k/uL Basophils # (0-0.2) k/uL PT 9.4 (9.0-12.0) sec INR 0.9 (<1.2) APTT 21.4 L (22.0-30.0) sec Sodium (137-145) mmol/L Potassium (3.5-5.1) mmol/L Chloride (98-107) mmol/L Carbon Dioxide (22-30) mmol/L Anion Gap mmol/L BUN (7-17) mg/dL Creatinine (0.52-1.04) mg/dL Est GFR (CKD-EPI)AfAm (>60 ml/min/1.73 sqM) Est GFR (CKD-EPI)NonAf (>60 ml/min/1.73 sqM) Glucose (74-99) mg/dL Plasma Lactic Acid Eris 1.0 (0.7-2.0) mmol/L Calcium (8.4-10.2) mg/dL Total Bilirubin (0.2-1.3) mg/dL AST (14-36) U/L ALT (4-34) U/L Alkaline Phosphatase (38-126) U/L Troponin I <0.012 (0.000-0.034) ng/mL Total Protein (6.3-8.2) g/dL Albumin (3.5-5.0) g/dL Amylase (30-110) U/L Lipase (23-300) U/L Urine Color Urine Appearance (Clear) Urine pH (5.0-8.0) Ur Specific [place] (1.001-1.035) Urine Protein (Negative) Urine Glucose (UA) (Negative) Urine Ketones (Negative) Urine Blood (Negative) Urine Nitrite (Negative) Urine Bilirubin (Negative) Urine Urobilinogen (<2.0) mg/dL Ur Leukocyte Esterase (Negative) Disposition Clinical Impression: Enteritis Disposition: HOME SELF-CARE Condition: Good Instructions (If sedation given, give patient instructions): Enteritis (ED) Additional Instructions: Follow-up with PCP. Report back to ER with any new or worsening symptoms. Take medication as prescribed. Prescriptions: Dicyclomine [Bentyl] 10 mg PO QID #20 capsule Ondansetron Odt [Zofran Odt] 4 mg PO Q8HR PRN #20 tab PRN Reason: Nausea Is patient prescribed a controlled substance at d/c from ED?: No Referrals: Jean Yang MD [Primary Care Provider] - 1-2 days Time of Disposition: 02:34
--- NOTE | 2022-10-07 01:24 | CT ---
EXAM: CT Abdomen and Pelvis Without Intravenous Contrast CLINICAL HISTORY: ITS.REASON CT Reason: abdominal pain TECHNIQUE: Axial computed tomography images of the abdomen and pelvis without intravenous contrast. CTDI is 12.8 mGy and DLP is 794.7 mGy-cm. This CT exam was performed using one or more of the following dose reduction techniques: automated exposure control, adjustment of the mA and/or kV according to patient size, and/or use of iterative reconstruction technique. COMPARISON: No relevant prior studies available. FINDINGS: ABDOMEN: Liver: Unremarkable. Gallbladder and bile ducts: Unremarkable. Pancreas: No ductal dilation. Spleen: Unremarkable. Adrenals: Unremarkable. Kidneys and ureters: No obstructing stones. No hydronephrosis. Stomach and bowel: No bowel obstruction. No bowel wall thickening. Diffusely fluid filled bowel loops, correlate with enteritis. PELVIS: Appendix: No evidence of appendicitis. Bladder: No stones. Reproductive: Unremarkable. ABDOMEN and PELVIS: Intraperitoneal space: Unremarkable. Bones/joints: No acute fractures. Soft tissues: Unremarkable. Vasculature: No abdominal aortic aneurysm. Lymph nodes: No enlarged lymph nodes. IMPRESSION: Diffusely fluid filled bowel loops, correlate with enteritis.
[2022-10-07 02:30] LABS: Appearance,Urine Clear (Clear); Bilirubin,Urine Negative (Negative); Blood,Urine Negative (Negative); Color,Urine Yellow; Glucose,Urine (UA) Negative (Negative); Ketones,Urine Trace (Negative); Leukocyte Esterase,Urine Negative (Negative); Nitrite,Urine Negative (Negative); PH, Urine 5.5 (5.0-8.0); Protein,Urine Negative (Negative); Specific Gravity,Urine 1.014 (1.001-1.035); Urobilinogen,Urine <2.0 mg/dL (<2.0)
[2022-10-07 02:40] VITALS: BP 144/80; PULSE 65; RESP 18
== END 2022-10-07 02:57 | disposition home or self-care (01) ==
LOC: EC 22:40
DX: K52.9 Noninfective gastroenteritis and colitis, unspecified (principal); Z88.0 Allergy status to penicillin; Z88.8 Allergy status to other drugs, medicaments and biological substances; Z87.891 Personal history of nicotine dependence
CPT/HCPCS: 36415; 74176; 80053; 81003; 82150; 83605; 83690; 84484; 85025; 85610; 85730; 93005; 96360; 99284